=== PATIENT | male | born 1950 | race Caucasian/White ===

== ENCOUNTER → 2018-01-07 | Outpatient (CLI) | payer BC ==
[~2018-01-07] MED LIST: AMLO2.5T2 PO; ASPEC325 PO; ASPI325T45 PO; CLB200 PO; ENAL20TA PO; HYDR-5688 PO; LPT/40 PO; METF500T PO; OXYSR10 PO; RANI150C4 PO
[2018-01-07 13:31] LABS: HEMOGLOBIN A1C 6.7 % (4.5-5.6)
[2018-01-07 14:51] LABS: ALBUMIN 3.9 gm/dl (3.4-5.0); BLOOD UREA NITROGEN 20 mg/dl (7-18); CALCIUM 9.2 mg/dl (8.5-10.1); CARBON DIOXIDE 23 mmol/L (21-32); GLUCOSE 138 mg/dl (70-99); POTASSIUM 4.1 mmol/L (3.5-5.1); SODIUM 144 mmol/L (136-145)
[2018-01-07 14:52] LABS: PHOSPHORUS 2.5 mg/dl (2.5-4.9)
== END | disposition home or self-care (01) ==
LOC: C.LABMFLN 09:32
PROVIDERS: ATTEND Family Medicine
DX: E11.9 Type 2 diabetes mellitus without complications (principal)

== ENCOUNTER 2024-07-14 16:21 | Inpatient (IN) ==
--- NOTE | 2024-07-14 16:25 | ED Triage Note ---
Date of Service July 14, 2024 Provider in Triage Author: Nidia Woods History of Present Illness This patient was briefly evaluated while in triage. An abbreviated physical exam was performed. This patient is a 73-year-old Male who presents to the ED for evaluation retaining fluid in legs up to groin worsened over the weekend SOB with exertion seen by cardiology today, and sent for admission for diuresis just had an iron infusion recent open heart surgery this spring Physical Exam GENERAL: NAD CARDIOVASCULAR: RRR RESPIRATORY: BS diminished. ABDOMEN: BS x 4. Nontender to palpation. EXT: 3+ pitting edema BLE Initial orders for labs and / or imaging were placed and patient was placed in the waiting area until a bed is available. Please see further documentation for the full ED course.
[2024-07-14 17:06] LABS: Basophils # (auto) 0.02 K/uL (0.00-0.20); Basophils % (auto) 0.3 %; Eosinophils # (auto) 0.01 K/uL (0.00-0.50); Eosinophils % (auto) 0.1 %; Hematocrit (blood only) 31.9 % (42.0-52.0); Hemoglobin 9.4 g/dl (14.0-18.0); Immature Granulocytes # (auto) 0.02 K/uL (0.01-0.20); Immature Granulocytes % (auto) 0.3 %; Lymphocytes # (auto) 1.24 K/uL (1.20-3.40); Lymphocytes % (auto) 18.5 %; Mean Corpuscular Hemoglobin 22.5 pg (25.0-34.0); Mean Corpuscular Hgb Conc 29.5 g/dL (32.0-36.0); Mean Corpuscular Volume 76.3 fL (80.0-100.0); Mean Platelet Volume 9.8 fL (9.4-12.4); Monocytes # (auto) 0.37 K/uL (0.11-0.59); Monocytes % (auto) 5.5 %; Neutrophils # (auto) 5.06 K/uL (1.40-6.50); Neutrophils % (auto) 75.3 %; Platelet Count 179 K/uL (130-400); RDW Coefficient of Variation 19.3 % (11.5-14.5); RDW Standard Deviation 51.4 fL (36.4-46.3); Red Blood Count 4.18 M/uL (4.70-6.10); White Blood Count 6.72 K/ul (4.8-10.8)
[2024-07-14 17:15] LABS: Appearance Urine Cloudy (Clear); Bacteria Urine Automated None Seen (None Seen); Bilirubin Urine Negative (Negative); Blood Urine Trace (Negative); Color Urine Yellow; Epithelial Cell Urine Auto 0-2 /hpf (0-2); Glucose Urine UA Negative (Negative); Ketones Urine Negative (Negative); Leukocyte Esterase Urine 3+ (Negative); Nitrite Urine Negative (Negative); Protein Urine 1+ (Negative); Specific Gravity Urine 1.014 (1.000-1.030); Urobilinogen Urine Negative (Negative); WBC Urine Automated >50 /hpf (0-5)
[2024-07-14 17:21] LABS: Albumin Globulin Ratio 1.4 (0.9-2); Albumin Level 4.1 gm/dl (3.4-5.0); BUN Creatinine Ratio 12.1 (10-20); Bilirubin,Total 0.5 mg/dl (0.2-1.0); Calcium 9.5 mg/dl (8.6-10.3); Creatinine Clr Calc Pharmacy 30.6 ml/min; Est GFR (African American) 24.5 ml/min; Est GFR (Non-African American) 21.2 ml/min; Globulin 2.9 gm/dl (2.5-4.0); Potassium 4.1 mmol/L (3.5-5.1)
--- NOTE | 2024-07-14 17:24 | XRay Report ---
XR chest 2V PA/lateral CLINICAL HISTORY: SOB, fluid retention TECHNIQUE: 2 views of the chest were obtained. Comparison: Comparison is made to chest radiograph 10/15/2014 FINDINGS: Median sternotomy wires are unchanged. Aortic appendage clip is seen. Cardiomegaly is noted. Prominen ce and cephalization of the vasculature is seen. Trace left pleural effusion is seen. IMPRESSION: 1. Cardiomegaly and mild pulmonary edema. 2. Trace left pleural effusion. ACT 112: Negative or not required by law. Electronically signed by: Joey Cheema M.D. 07/14/2024 5:22 PM
[2024-07-14 17:37] LABS: INR 3.5 (0.9-1.1); Partial Thromboplastin Ratio 1.5; Partial Thromboplastin Time 41 Seconds (21-31); Prothrombin Time 33.8 Seconds (9.0-12.0)
[2024-07-14 17:38] LABS: Troponin I High Sensitivity 173.5 pg/ml (0-20)
--- NOTE | 2024-07-14 18:45 | Emergency Department Note ---
History of Present Illness General Chief Complaint: Swelling/Edema to Extremity Stated Complaint: EDMEA/LEGS/GROIN Time Seen by Provider: 07/14/24 16:58 History of Present Illness Provider Complaint: shortness of breath Onset (ago): day(s) (4) Severity: similar to previous episodes Consistency/Duration: + progressively worsening Relieved By: + rest Exacerbated By: + exertion Known history of: congestive heart failure Associated symptoms: + orthopnea and + chest congestion; no pain with inspiration, no fever, no cough, no wheezing or no sputum production Treatment prior to arrival: none Related Data Home oxygen amount: none Home Medications Medication Instructions Recorded Confirmed Type lancets 30 gauge (OneTouch #100 ea 01/29/24 07/14/24 Rx UltraSoft 2 Lancet) blood-glucose meter (OneTouch #1 ea 02/06/24 07/14/24 Rx Ultra2 Meter) warfarin 5 mg tablet 5 mg PO DAILY #90 tabs 03/23/24 07/14/24 Rx clopidogrel 75 mg tablet 75 mg PO QAM 04/27/24 07/14/24 History tamsulosin 0.4 mg capsule 0.4 mg PO PM 04/27/24 07/14/24 History folic acid 1 mg tablet 1 mg PO HS #90 tabs 05/05/24 07/14/24 Rx atorvastatin 40 mg tablet 40 mg PO QAM #90 tabs 05/19/24 07/14/24 Rx amiodarone 200 mg tablet 200 mg PO DAILY #30 tabs 06/02/24 07/14/24 Rx blood sugar diagnostic (OneTouch #100 ea 06/12/24 07/14/24 Rx Ultra Test strips) torsemide 20 mg tablet 20 mg PO DAILY #60 tabs 07/02/24 07/14/24 Rx cyanocobalamin (vitamin B-12) 1,000 mcg sublingual DAILY 07/14/24 07/14/24 History 1,000 mcg sublingual tablet glimepiride 1 mg tablet 1 mg PO QPM 07/14/24 07/14/24 History Allergies Allergy/AdvReac Type Severity Reaction Status Date / Time No Known Drug Allergies Allergy Unknown Verified 07/14/24 17:42 Past Med/Surg History Problem List (Updated 07/14/24 @ 18:51 by Keanu Mosher MD) Benign essential hypertension (Chronic) Diabetes mellitus (Chronic) Hyperlipidemia (Chronic) CAD (coronary artery disease) Heart failure with preserved ejection fraction Congestive heart failure (CHF) (Acute) Atrial flutter Atrial fibrillation, permanent Anticoagulant long-term use Valvular heart disease Anemia due to chronic kidney disease CKD stage 4 due to type 2 diabetes mellitus Proteinuria (Chronic) Vitamin D deficiency Nephrolithiasis Pancreatic cyst (Chronic) CT Pancreas w/ and w/o IV contrast (08/01/22) 1. Stable cystic lesion in the pancreatic tail, likely a pseudocyst or side branch IPMN. Recommend continued follow-up in 1 year. 2. Similar 1.1 cm right upper pole solid renal mass. Continued attention should be given to this mass on subsequent follow-up exams. CT A/P w/o IV contrast (07/05/23) "Cystic lesion within the pancreatic tail measuring 2.4 cm, unchanged from 2019" Obesity (Chronic) Gastroesophageal reflux (Chronic) Generalized osteoarthritis of multiple sites (Chronic) Anxiety (Chronic) Allergic rhinitis (Chronic) Adenomatous colon polyp (Chronic) DJD (degenerative joint disease) (Chronic 11/10/14) Medical History Anxiety Hx of gastroesophageal reflux (GERD) now controlled Nephrolithiasis present Hypertension Diabetes mellitus, type 2 Hyperlipidemia Valvular heart disease CKD stage 4 due to type 2 diabetes mellitus follows with Dr. Martínez Atrial fibrillation dx 2021 > no pacer > Warfarin > follows with Dr. Vasquez Renal mass CT A/P (07/05/23) "There is a cortical renal cyst formation on the right with some wall calcification" Benign paroxysmal positional vertigo H/O TIA (transient ischemic attack) and stroke pt unaware/ denies Multiple pulmonary nodules CT Chest (01/24/23) "Compared to a prior CT chest dated 01/02/2019, lung stable benign nodules measuring between 2 mm and 10 mm in size. No follow-up imaging is recommended." Surgical History History of cardiac cath 12/2023 > no stents History of cystoscopy Hx of heart bypass surgery triple at [facility] 01/07/24 H/O umbilical hernia repair Status post hip replacement right H/O knee surgery bilat H/O colonoscopy 01/16/23 repeat 5 yrs Family History Father Coronary heart disease Myocardial infarction Brother Coronary heart disease Myocardial infarction Denies family history of Prostate cancer Breast cancer Colorectal cancer Social History Smoking Status: Never smoker Second Hand Exposure: No; Do You Dip or Chew Tobacco: No; Hx Alcohol Use: Yes Hx Substance Use: No Preferred Language: Slovenian Communication Ability: Effective Metal Stamper Required: No Beliefs That Will Affect Care: None marital status: / Current Living Situation: Alone Feels Safe at Home: Yes Assistive Devices: Glasses and Hearing Aid - Bilateral Physical Exam 2 Vital Signs: Vital Signs - 24 hr 07/14/24 16:24 07/14/24 17:06 07/14/24 17:15 Temperature 36.9 C Temperature Source Temporal Artery Sc an Pulse Rate 72 59 L Pulse Rate [Apical ] Pulse Rate from Sp O2 Sensor 61 Respiratory Rate 18 20 Respiratory Effort / Characteristics Non-Labored Sponta neous Respiratory Depth Normal Respiratory Patter n Regular Blood Pressure 139/70 147/78 H Blood Pressure [Le ft Arm] Blood Pressure Shari n 93 114 Blood Pressure Shari n [Left Arm] Pulse Oximetry 94 93 Oxygen Delivery Me thod Room Air Room Air Sepsis Recent Feve r Within 48 Hours No Sepsis New/Unexpla ined Change in Men estrada Status N/A Sepsis Action Take n by Nursing No Action Required 07/14/24 17:20 07/14/24 17:20 07/14/24 17:20 Temperature Temperature Source Pulse Rate 69 Pulse Rate [Apical ] 63 Pulse Rate from Sp O2 Sensor Respiratory Rate 18 Respiratory Effort / Characteristics Respiratory Depth Respiratory Patter n Blood Pressure Blood Pressure [Le ft Arm] 147/78 H Blood Pressure Shari n Blood Pressure Shari n [Left Arm] 101 Pulse Oximetry 97 Oxygen Delivery Me thod Room Air Sepsis Recent Feve r Within 48 Hours Sepsis New/Unexpla ined Change in Men estrada Status Sepsis Action Take n by Nursing 07/14/24 17:30 07/14/24 17:57 07/14/24 18:02 Temperature Temperature Source Pulse Rate 63 68 Pulse Rate [Apical ] Pulse Rate from Sp O2 Sensor 61 68 Respiratory Rate 24 26 H Respiratory Effort / Characteristics Respiratory Depth Respiratory Patter n Blood Pressure 143/78 H Blood Pressure [Le ft Arm] Blood Pressure Shari n 95 Blood Pressure Shari n [Left Arm] Pulse Oximetry 95 96 Oxygen Delivery Me thod Room Air Room Air Sepsis Recent Feve r Within 48 Hours Sepsis New/Unexpla ined Change in Men estrada Status Sepsis Action Take n by Nursing 07/14/24 18:03 Temperature Temperature Source Pulse Rate 66 Pulse Rate [Apical ] Pulse Rate from Sp O2 Sensor 66 Respiratory Rate 24 Respiratory Effort / Characteristics Respiratory Depth Respiratory Patter n Blood Pressure Blood Pressure [Le ft Arm] Blood Pressure Shari n Blood Pressure Shari n [Left Arm] Pulse Oximetry 94 Oxygen Delivery Me thod Room Air Sepsis Recent Feve r Within 48 Hours Sepsis New/Unexpla ined Change in Men estrada Status Sepsis Action Take n by Nursing Physical Exam: Physical Exam GENERAL: oriented to person, place, and time. appears well-developed and well- nourished. HENT: Exam performed. - Head: Normocephalic and atraumatic. EYES: Conjunctivae and EOM are normal. Right eye exhibits no discharge. Left eye exhibits no discharge. No scleral icterus. NECK: Normal range of motion. Neck supple. No JVD present. CV: Normal rate, regular rhythm, normal heart sounds and intact distal pulses. There is 2+ pitting edema in the bilateral lower extremities. Palpable radial pulses bue. PULM/CHEST: Inspiratory rales bilaterally. ABD: The abdomen is soft. There is no tenderness. NEURO: Motor and sensation grossly intact. SKIN: Skin is warm and dry. He is not diaphoretic. PSYCH: normal mood and affect. Behavior is normal. Judgment and thought content normal. Course Course 165: The patient was evaluated in room A4. A complete history and physical exam was performed Cardiac monitoring: An order was placed for continuous cardiac monitoring. The monitor shows a rate of 70 with sinus rhythm interpreted by me 1755: Vital signs stable. Labs show hemoglobin of 9.4. INR 3.4. Creatinine 2.81 at patient's baseline. High-sensitivity troponin 173.5. proBNP 640. Chest x-ray shows cardiomegaly with pulmonary edema. Patient be admitted to the [facility] hospitalist team. Discussed with Dr. Ramon who states he will put in orders for diuresis. Medical Decision Making Medical Records Attestation: I reviewed the patient's medical records. External medical records reviewed. Patient was seen by Michelle Neff in the cardiology clinic today. The patient appeared hypervolemic there and in the past his kidney function has worsened with aggressive diuresis. Cardiology recommended the patient be admitted for IV diuretic therapy and so his renal function can be closely monitored. Laboratory Data Attestation: I reviewed the patient's lab results. 07/14/24 16:36 07/14/24 16:36 Lab Results 07/14/24 07/14/24 Range/Units 16:36 16:42 WBC 6.72 (4.8-10.8) K/ul RBC 4.18 L (4.70-6.10) M/uL Hgb 9.4 L (14.0-18.0) g/dl Hct 31.9 L (42.0-52.0) % MCV 76.3 L (80.0-100.0) fL MCH 22.5 L (25.0-34.0) pg MCHC 29.5 L (32.0-36.0) g/dL RDW Std Deviation 51.4 H (36.4-46.3) fL RDW Coeff of [place] 19.3 H (11.5-14.5) % Plt Count 179 (130-400) K/uL MPV 9.8 (9.4-12.4) fL Immature Gran % (Auto) 0.3 % Neut % (Auto) 75.3 % Lymph % (Auto) 18.5 % Reeves % (Auto) 5.5 % Eos % (Auto) 0.1 % Baso % (Auto) 0.3 % Neut # (Auto) 5.06 (1.40-6.50) K/uL Lymph # (Auto) 1.24 (1.20-3.40) K/uL Reeves # (Auto) 0.37 (0.11-0.59) K/uL Eos # (Auto) 0.01 (0.00-0.50) K/uL Baso # (Auto) 0.02 (0.00-0.20) K/uL Immature Gran # (Auto) 0.02 (0.01-0.20) K/uL PT 33.8 H (9.0-12.0) Seconds INR 3.5 H (0.9-1.1) APTT 41 H (21-31) Seconds PTT Ratio 1.5 Sodium 142 (136-145) mmol/L Potassium 4.1 (3.5-5.1) mmol/L Chloride 111 H (98-107) mmol/L Carbon Dioxide 23 (21-32) mmol/L Anion Gap 8 (3-11) BUN 34 H (6-23) mg/dl Creatinine 2.81 H (0.6-1.4) mg/dl Est Cr Clr Drug Dosing 30.6 ml/min Est GFR ( Amer) 24.5 ml/min Est GFR (Non-Af Amer) 21.2 ml/min BUN/Creatinine Ratio 12.1 (10-20) Glucose 136 H (70-99(Fasting)) mg/dl Calcium 9.5 (8.6-10.3) mg/dl Total Bilirubin 0.5 (0.2-1.0) mg/dl AST 15 (13-39) U/L ALT 19 (7-52) U/L Alkaline Phosphatase 92 (34-104) U/L Troponin I High Sens 173.5 H* (0-20) pg/ml B-Natriuretic Peptide 640 H (0-100) pg/ml Total Protein 7.0 (6.0-8.3) gm/dl Albumin 4.1 (3.4-5.0) gm/dl Globulin 2.9 (2.5-4.0) gm/dl Albumin/Globulin Ratio 1.4 (0.9-2) Urine Color Yellow Urine Appearance Cloudy A (Clear) Urine pH 5.0 (4.5-7.5) Ur Specific [place] 1.014 (1.000-1.030) Urine Protein 1+ H (Negative) Urine Glucose (UA) Negative (Negative) Urine Ketones Negative (Negative) Urine Blood Trace H (Negative) Urine Nitrite Negative (Negative) Urine Bilirubin Negative (Negative) Urine Urobilinogen Negative (Negative) Ur Leukocyte Esterase 3+ H (Negative) Urine WBC (Auto) >50 H (0-5) /hpf Urine RBC (Auto) 3-5 H (0-2) /hpf U Hyaline Cast (Auto) 3-5 H (0-2) /lpf U Epithel Cells (Auto) 0-2 (0-2) /hpf Urine Bacteria (Auto) None Seen (None Seen) Imaging Data Attestation: I personally reviewed and interpreted this imaging study as follows: My Impression: Chest x-ray: Cardiomegaly with cephalization Radiologist's Impression: Chest X-Ray 07/14/24 16:25 XR chest 2V PA/lateral CLINICAL HISTORY: SOB, fluid retention TECHNIQUE: 2 views of the chest were obtained. Comparison: Comparison is made to chest radiograph 10/15/2014 FINDINGS: Median sternotomy wires are unchanged. Aortic appendage clip is seen. Cardiomegaly is noted. Prominence and cephalization of the vasculature is seen. Trace left pleural effusion is seen. IMPRESSION: 1. Cardiomegaly and mild pulmonary edema. 2. Trace left pleural effusion. ACT 112: Negative or not required by law. Electronically signed by: Joey Cheema M.D. 07/14/2024 5:22 PM ECG Data Attestation: I personally reviewed and interpreted this ECG as follows: Interpretation: Sinus rhythm with sinus arrhythmia with rate of 67. VA 208 QRS [address] elevation or ST depression. [facility] Narrative 1658: The patient was evaluated in room A4. A complete history and physical exam was performed Cardiac monitoring: An order was placed for continuous cardiac monitoring. The monitor shows a rate of 70 with sinus rhythm interpreted by me 1755: Vital signs stable. Labs show hemoglobin of 9.4. INR 3.4. Creatinine 2.81 at patient's baseline. High-sensitivity troponin 173.5. proBNP 640. Chest x-ray shows cardiomegaly with pulmonary edema. Patient be admitted to the [facility] hospitalist team. Discussed with Dr. Ramon who states he will put in orders for diuresis. Impression & Plan Congestive heart failure (CHF) Discharge Plan Visit Data Chief Complaint: Swelling/Edema to Extremity Stated Complaint: EDMEA/LEGS/GROIN ED Provider: Keanu Mosher Discharge Problem: Congestive heart failure (CHF) Patient Disposition: Admitted As Inpatient Forms Stand Alone Forms: My [facility] Prescriptions Prescriptions: No Action (DME) lancets [OneTouch UltraSoft 2 Lancet] 30 gauge misc See Rx Instructions .ROUTE .MEDSUPPLY Qty: 100 1RF Rx Instructions: As directed once daily dx:e11.9 (DME) blood-glucose meter [OneTouch Ultra2 Meter] Misc See Rx Instructions .Route Qty: 1 0RF Rx Instructions: As directed. Check glucose once daily. DX E11.9 warfarin 5 mg tablet 5 mg PO DAILY Qty: 90 3RF Protocol: Dose Management Condition: Saturday Dose/Route: 5 mg Instruction: 1 x 5 mg tablet Condition: Saturday Dose/Route: 2.5 mg Instruction: 1 x 2.5 mg tablet Condition: Saturday Dose/Route: 2.5 mg Instruction: 1 x 2.5 mg tablet Condition: Saturday Dose/Route: 2.5 mg Instruction: 1 x 2.5 mg tablet Condition: Dose/Route: 2.5 mg Instruction: 1 x 2.5 mg tablet Condition: Saturday Dose/Route: 2.5 mg Instruction: 1 x 2.5 mg tablet Condition: Saturday Dose/Route: 5 mg Instruction: 1 x 5 mg tablet Protocol Text: Adjustment Start Date: Saturday06/30/24 INR Value: 2.5 INR Date: 06/30/24 Recheck Date: 07/14/24 Rx Instructions: Take 5mg by mouth on Sat/Sun. Take 2.5mg all other days. atorvastatin 40 mg tablet 40 mg PO QAM Qty: 90 3RF (DME) OneTouch Ultra Test Strip See Rx Instructions .ROUTE .MEDSUPPLY Qty: 100 0RF Rx Instructions: Check sugar once daily as directed DX:E11.9 torsemide 20 mg tablet 20 mg PO DAILY Qty: 60 11RF folic acid 1 mg tablet 1 mg PO HS Qty: 90 3RF amiodarone 200 mg tablet 200 mg PO DAILY Qty: 30 2RF clopidogrel 75 mg tablet 75 mg PO QAM tamsulosin 0.4 mg capsule 0.4 mg PO PM cyanocobalamin (vitamin B-12) [Vitamin B-12] 1,000 mcg Tablet, Sublingual 1,000 mcg SUBLINGUAL DAILY glimepiride 1 mg tablet 1 mg PO QPM Referrals Referrals: Radha Bhatt CRNP [Primary Care Provider] -
--- NOTE | 2024-07-14 19:02 | History & Physical Report ---
Date of Service July 14, 2024 Assessment & Plan (1) Acute on chronic heart failure with preserved ejection fraction: Plan: 1 wk hx of worsening SoB and leg swelling. TTE 04/2024 LVEF 55-60% Pt on torsemide 20mg od, compliant with medications. no obvious triggers identified in hx. JVD elev, HJR+, B/L pedal edema 2+, CXR today cardiomegaly, lungs congestion, LL small pleural effusion. today BNP 640 (455). Trop 173.5 likely demand ischemia. IV furosemide 40mg stat then 40mg IV BID Tele monitoring I/O Daily weights AM labs (2) Paroxysmal atrial fibrillation: Plan: known hx of AFib. pt on anticoagulation with warfarin ( 5mg sat/sun and rest of the week 2.5mg, target 2-3INR) denies any palpitations SoB, or chest pains. EKG current in NSR with sinus arrhythmia Plan: Tele repeat EKG AM labs today INR 3.5, so dose skipped. to continue warfarin 2.5mg (usual recommended dose) c/w Amiodarone 200mg daily (3) CAD (coronary artery disease): Plan: s/p CABG 01/25 no chest pain. Plan: c/w Plavix 75mg daily C/w Atorvastatin 40mg daily (4) Diabetes mellitus: Plan: known hx of DM2 on oral meds last A1c 05/27, 6.5, today Glu 135. Plan: c/w home meds, glimepiride 1mg daily repeat A1c Bl Glu monitoring. (5) CKD stage 4 due to type 2 diabetes mellitus: Plan: Known hx of CKD 3a eGFR 21.2 today. Plan: renal dosing of medications monitor renal labs I/O daily weights. (6) Anemia due to chronic kidney disease: Plan: known CKD. AOCD pt had iron transfusion this afternoon. Hb 9.4, Hct 31.9, Plan: monitor CBC (7) Hyperlipidemia: Plan: known hx of CAD, DM2 Plan: c/w Atorvastatin 40mg (8) Elevated troponin: Plan: Trops elevated on admission pt denies any chest pain or discomfort. pt hx of CKD3a Trops 173.5 > [address] no [address]/T changes today when compared to previous EKGs. Plan: Repeat Trops am Repeat EKG am AM labs Tele. History of Present Illness Chief Complaint: leg swelling Primary Care Provider: SAM Mota This is a 73-year-old Male with b/g hx of HFpEF, CABG (01/25), CKD 3a, HTN, DM2, AFib permanent (on warfarin), CAD who presents to the ED for evaluation retaining fluid in legs up to groin and SOB with exertion that is worsened over the weekend. Pt was seen by cardiology today as a routine visit, and sent for admission for diuresis. Pt denies any chest pain or palpitations or syncope. No recent cough, diarrhea, dysuria or any acute illnesses. Pt says that he is compliant with his medications. He still uses 2 pillows to sleep, no change. Allergies Allergy/AdvReac Type Severity Reaction Status Date / Time No Known Drug Allergies Allergy Unknown Verified 07/14/24 17:42 Home Medications Medication Instructions Recorded Confirmed Type lancets 30 gauge (OneTouch #100 ea 01/29/24 07/14/24 Rx UltraSoft 2 Lancet) blood-glucose meter (OneTouch #1 ea 02/06/24 07/14/24 Rx Ultra2 Meter) warfarin 5 mg tablet 5 mg PO DAILY #90 tabs 03/23/24 07/14/24 Rx clopidogrel 75 mg tablet 75 mg PO QAM 04/27/24 07/14/24 History tamsulosin 0.4 mg capsule 0.4 mg PO PM 04/27/24 07/14/24 History folic acid 1 mg tablet 1 mg PO HS #90 tabs 05/05/24 07/14/24 Rx atorvastatin 40 mg tablet 40 mg PO QAM #90 tabs 05/19/24 07/14/24 Rx amiodarone 200 mg tablet 200 mg PO DAILY #30 tabs 06/02/24 07/14/24 Rx blood sugar diagnostic (OneTouch #100 ea 06/12/24 07/14/24 Rx Ultra Test strips) torsemide 20 mg tablet 20 mg PO DAILY #60 tabs 07/02/24 07/14/24 Rx cyanocobalamin (vitamin B-12) 1,000 mcg sublingual DAILY 07/14/24 07/14/24 History 1,000 mcg sublingual tablet glimepiride 1 mg tablet 1 mg PO QPM 07/14/24 07/14/24 History Past Med/Surg History Problem List Paroxysmal atrial fibrillation Acute on chronic heart failure with preserved ejection fraction Acute congestive heart failure Elevated troponin Benign essential hypertension (Chronic) Diabetes mellitus (Chronic) Hyperlipidemia (Chronic) CAD (coronary artery disease) Heart failure with preserved ejection fraction Congestive heart failure (CHF) (Acute) Atrial flutter Anticoagulant long-term use Valvular heart disease Anemia due to chronic kidney disease CKD stage 4 due to type 2 diabetes mellitus Proteinuria (Chronic) Vitamin D deficiency Nephrolithiasis Pancreatic cyst (Chronic) CT Pancreas w/ and w/o IV contrast (08/01/22) 1. Stable cystic lesion in the pancreatic tail, likely a pseudocyst or side branch IPMN. Recommend continued follow-up in 1 year. 2. Similar 1.1 cm right upper pole solid renal mass. Continued attention should be given to this mass on subsequent follow-up exams. CT A/P w/o IV contrast (07/05/23) "Cystic lesion within the pancreatic tail measuring 2.4 cm, unchanged from 2019" Obesity (Chronic) Gastroesophageal reflux (Chronic) Generalized osteoarthritis of multiple sites (Chronic) Anxiety (Chronic) Allergic rhinitis (Chronic) Adenomatous colon polyp (Chronic) DJD (degenerative joint disease) (Chronic 11/10/14) Medical History Anxiety Hx of gastroesophageal reflux (GERD) now controlled Nephrolithiasis present Hypertension Diabetes mellitus, type 2 Hyperlipidemia Valvular heart disease CKD stage 4 due to type 2 diabetes mellitus follows with Dr. Martínez Atrial fibrillation dx 2021 > no pacer > Warfarin > follows with Dr. Vasquez Renal mass CT A/P (07/05/23) "There is a cortical renal cyst formation on the right with some wall calcification" Benign paroxysmal positional vertigo H/O TIA (transient ischemic attack) and stroke pt unaware/ denies Multiple pulmonary nodules CT Chest (01/24/23) "Compared to a prior CT chest dated 01/02/2019, lung stable benign nodules measuring between 2 mm and 10 mm in size. No follow-up imaging is r ecommended." Surgical History History of cardiac cath 12/2023 > no stents History of cystoscopy Hx of heart bypass surgery triple at [place] 01/07/24 H/O umbilical hernia repair Status post hip replacement right H/O knee surgery bilat H/O colonoscopy 01/16/23 repeat 5 yrs Family History Father Coronary heart disease Myocardial infarction Brother Coronary heart disease Myocardial infarction Denies family history of Prostate cancer Breast cancer Colorectal cancer Social History Smoking Status: Never smoker Second Hand Exposure: No; Do You Dip or Chew Tobacco: No; Hx Alcohol Use: No Hx Substance Use: No Preferred Language: Turkish Communication Ability: Effective Host Hostess Required: No Beliefs That Will Affect Care: None marital status: / Current Living Situation: Alone Other Information That Helps Us Care for You: No Feels Safe at Home: Yes Safety Concerns: Feels Safe At This Time Assistive Devices: None Assistive Devices Comment: reading glasses Review of Systems Review of Systems: as per HPI Physical Exam Physical Exam: General: Alert and oriented, no acute distress, on room air. HEENT: Normocephalic, moist oral mucosa, Cardio: irregular rate and rhythm, no murmur, JVD mild elevation, HJR +, B/L pedal edema 2+. Resp: Lungs crepts++ to auscultation b/l, reduced br sounds at Lt LL, no wheezes. GI: Soft and nontender, nondistended, bowel sounds active Skin: Warm, pink, dry, Psych: Mood-affect congruence. Extremities: Normal range of motion, 5/5 strength, normal sensory b/l. Neuro: CN II-XII grossly intact, no focal deficits Results & Data Results & Data Vital Signs (Past 12 Hours) Vital Signs Temp Pulse Pulse Resp BP BP Pulse Ox 07/14/24 18:03 66 24 94 07/14/24 18:02 143/78 H 07/14/24 17:57 68 26 H 96 07/14/24 17:30 63 24 95 07/14/24 17:20 07/14/24 17:20 63 18 147/78 H 97 07/14/24 17:20 69 07/14/24 17:15 59 L 20 93 07/14/24 17:06 147/78 H 09/10/24 16:24 36.9 C 72 18 139/70 94 O2 Del Method 07/14/24 18:03 Room Air 07/14/24 18:02 07/14/24 17:57 Room Air 07/14/24 17:30 Room Air 07/14/24 17:20 Room Air 07/14/24 17:20 07/14/24 17:20 07/14/24 17:15 Room Air 07/14/24 17:06 07/14/24 16:24 Room Air Supervising Physician Co-Signing Physician Notes I personally saw and examined the patient. I independently reviewed the labs, EKG, imaging, problem list, medication list, past medical history and family history. I verified all santiago points and agree with resident physician Dr Franky Hernández MD with the following exceptions and/or additions: 73 year old male presents to the ER with shortness of breath. Diagnosed with heart failure and recommended going to the ER for diuresis given prior diuresis cause increased Cr. O/E HS irregular rhythm, regular rate, no murmurs, Chest bibasal reduced breath sounds, Abdo SNT distended, Pedal edema 2+ to groin A/P Acute on chronic HFpEF - torsemide 20mg PO outpatient. Will give 40mg IV Lasix today and continue 40mg IV BID. I&Os, daily weights, low Na diet, fluid restricted CKD - no imaging since his stone in July and much worse renal function since then as it has never recovered. <200ml on PVR bladder scan. US renal ordered. Paroxysmal atrial fibrillation - previously documented as permanent but in NSR today. Cardiology note also mentioned switching amio to metoprolol but given current NSR would recommend he continues on rhythm control since it appears to be working. Continue anticoagulation with warfarin. [facility] RN consult as expense is the issue for him switching to Eliquis Elevated troponin - No chest pain or shortness of breath at rest. Stable. Do not suspect ACS. Repeat one more with AM labs Resident Activity Tracking Resident Involvement: Resident Care Provided Care Provided: Adult Hospital Medicine (3) CAD (coronary artery disease) Associated angina: without angina Coronary Disease-Associated Artery/Lesion type: [place] artery [place] vs. 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
[2024-07-14] MEDS: FUROSEMIDE 40 MG/4 ML VIAL IV STA (19:51)
[2024-07-14] MEDS ORDERED: CARBOHYDRATES FOR HYPOGLYCEMIA PO PRN (22:14)
[2024-07-14] MEDS ORDERED: ACETAMINOPHEN 325 MG TAB PO PRN (22:14)
[2024-07-14] MEDS ORDERED: GLUCOSE 40% GEL 15 GM TUBE PO PRN (22:14)
[2024-07-14] MEDS ORDERED: POLYETHYLENE (MIRALAX) 17 GM PACK PO PRN (22:14)
[2024-07-14] MEDS ORDERED: DEXTROSE 50% 50 ML SYRINGE IV PRN (22:14)
[2024-07-14] MEDS ORDERED: GLUCOSE 10 TAB/TUBE PO PRN (22:14)
[2024-07-14] MEDS ORDERED: GLUCAGON FOR INJ 1 MG VIAL SQ PRN (22:14)
[2024-07-14] MEDS: GLIMEPIRIDE 2 MG TAB PO SCH (23:30)
[2024-07-14] MEDS: ATORVASTATIN 40 MG TAB PO SCH (23:30)
[2024-07-14] MEDS: FOLIC ACID 1 MG TAB PO SCH (23:30)
[2024-07-14] MEDS: TAMSULOSIN HCL 0.4 MG CAP PO SCH (23:30)
[2024-07-15 08:20] LABS: Estimated Average Glucose 140 mg/dl; Hemoglobin A1C 6.5 % (4.5-5.6)
--- NOTE | 2024-07-15 08:29 | Cardiology Consultation ---
Date of Consultation July 15, 2024 Assessment & Plan (1) Acute on chronic heart failure with preserved ejection fraction: (2) Elevated troponin: (3) CAD (coronary artery disease): (4) Atrial flutter: (5) Anticoagulant long-term use: (6) Hypertension: (7) CKD stage 4 due to type 2 diabetes mellitus: (8) Hx of heart bypass surgery: (9) Paroxysmal atrial fibrillation: Plan ASSESSMENT/PLAN: 1. Acute on chronic heart failure with preserved EF: Hypervolemic. Abnormal renal function, but improving with diuresis. Continue Lasix 40 mg IV twice daily for now. Goal net negative fluid balance 1 to 2 L daily. Seems to be diuresing reasonably well thus far and he admits that there was a large amount of urine that was not collected in the ER and thus not included in his current fluid balance. Close monitoring of renal function and electrolytes recommended. Will add on TSH. Discussed the importance of a low-sodium diet, less than 2000 mg daily. Check daily weights and strict I's and O's while hospitalized. Was unable to afford SGLT2 inhibitor. 2. CAD s/p CABG x 3: No angina since CABG. Angina consisted of burning in his throat with exertion accompanied by dyspnea. Continue high intensity statin therapy. CT surgery recommended Plavix. Can continue up to 1 year s/p CABG but would discontinue for adverse reaction, while also on warfarin. If any evidence of bleeding, would discontinue Plavix. Had significant bradycardia on metoprolol while on amiodarone. 3. Atrial flutter s/p DC CV: Noted following CABG and maze procedure but previously had been in permanent atrial fibrillation. Currently in sinus rhythm while on amiodarone. Continue amiodarone. Continue anticoagulation for stroke risk reduction. Not on DOAC agent secondary to finances. INR managed by PCP. Monitor CBC periodically. Monitor TSH and transaminase levels while on amiodarone. 4. Atrial fibrillation: [place] to be permanent but following Maze procedure developed atrial flutter. Underwent left atrial appendage closure at the time of CABG but unless documented no flow, would continue anticoagulation therapy for stroke risk reduction. Now in sinus rhythm on amiodarone. 5. Hypertension: Normotensive to mildly hypertensive while here. Most recent blood pressure well-controlled. Continue plan as above. 6. CKD: Has been evaluated by nephrology in the outpatient setting. Renal ultrasound interpretation pending. Monitor renal function closely. 7. Anemia: Is receiving outpatient IV iron. Monitor for bleeding. 8. Elevated troponin: He did not present with acute coronary syndrome. Likely due to demand ischemia in the setting of CHF exacerbation. Repeat echo to ensure stable LV systolic function and wall motion. 9. Disposition: I will be away from the hospital the remainder of the week. Cardiology will continue to follow. Please call on-call topographic computator for questions or concerns. Patient care discussed with Dr. Skinner of the primary hospitalist service. Highly complex medical issues. Thank you for allowing me to participate in the care of your patient. Please call for any other questions or concerns. Sincerely, Usman Vasquez M.D. History of Present Illness Reason for Consultation: Heart failure Requesting Physician: Merna Skinner MD Attending Physician: Merna Skinner MD History of Present Illness Mr. Hartman is a pleasant 73-year-old gentleman with a history significant for CAD s/p CABG x 3, HFpEF, atrial flutter (after CABG and MAZE) s/p CV, atrial fibrillation, hypertension, dyslipidemia, CKD, and type 2 diabetes. He has had the following studies/procedures: 1. Holter 01/11/2021 [facility]: AFib with average heart rate 85 beats per minute, ranging 34-132. No symptoms reported. 2. Echo 01/13/2021: Normal LV size, wall motion, systolic function. EF 55-60%. Severe concentric LVH. Moderate left atrial dilation. No significant valvular abnormalities. RVSP 33. AFib with RVR. 3. Nuclear stress 12/05/23 [facility]: Moderate area of moderate intensity partially reversible perfusion defect of the apex, distal to basal inferoseptal, and inferior wall. Gated imaging shows hypokinesis of the apex and distal inferoseptal and inferior wall. LV EF 53%. 4. Echo 12/18/23 [facility]: Normal LV size and systolic function. EF 60-65%. Small area of severe hypokinesis involving the apex. Severe concentric LVH. Severe left atrial dilation. Mild MR. Trace AI. Mild pulmonary hypertension. RVSP 47 mmHg. 5. Cardiac catheterization 12/18/23 [facility]: LM 10 to 20%. Mid LAD 99% at bifurcation of small D2. ANU II flow to the apical LAD. Large OM1 with proximal 70 to 80% stenosis and ANU-3 flow. Robust collaterals from the circumflex distribution to RCA PDA and PL. RCA is large and dominant. Early mid RCA 70%. Mid RCA 100% at bifurcation of acute marginal. PDA and PL fill via left to right collaterals. LVEDP 16. 6. CABG x3 (FENG-LAD, SVG-RCA, SVG-OM2), biatrial ablation, and occlusion of left atrial appendage using 45 mm AtriClip on 01/07/[address] Guzman at [facility] 7. Holter 03/10/2024 to 03/24/2024: Predominantly atrial flutter/fibrillation. Average heart rate 97 (78-226). PVCs. Nonsustained VT up to 16 beats. 8. Echo 04/10/2024 [facility]: Normal LV size, wall motion, systolic function. EF 55- 60%. Severe concentric LVH. Normal RV size with mildly reduced systolic function. Severe left atrial dilation. Mild AI. Mild MR. RVSP 45. Tachycardic heart rate consistently ~110 bpm. 9. DC cardioversion 05/12/2024 Dr. Santo: Done for atrial flutter. Converted to sinus rhythm with 30 J. Complicated by significant bradycardia while on metoprolol and amiodarone. Metoprolol discontinued by Dr. Santo following cardioversion. He was admitted on 07/14/2024 after being seen in the outpatient cardiology office earlier that day. He had experienced a 9 pound weight gain and increased lower extremity edema but also edema/fullness in his lower abdomen. He denied any significant shortness of breath. He sleeps with his head elevated chronically, but denied orthopnea. He denies chest pain, syncope, near syncope, palpitations, melena, hematochezia, or hematuria. He tries to maintain a low-sodium diet. He admits that sometimes he eats canned foods. He had been taking torsemide 20 mg daily in the outpatient setting. He has been unable to afford SGLT2 inhibitor. Given that his renal function has been impaired and difficulty managing hypervolemia in the outpatient setting, hospitalization was recommended. While here, he received Lasix 40 mg IV in the ER. The charted fluid balance is -550 mL but he admits that he urinated multiple times prior to the collection of urine in the ER. He has had several weights charted while here in less than 24 hours and they are not consistent. Today, he states that is too early to know if he feels much better. He does however note that his abdominal fullness has improved. Review of systems: As above. Family history: Father from [place] at 44. Brother from [place] at 55. Two older sisters with AFib. Social history: Denies smoking. Rare alcohol. He has been twice. He is a . He has 1 daughter with his first but they do not speak. He has a son and daughter with his second . He lives alone. No grandchildren. He is retired from [email or web address]. He was unaccompanied. Allergies Allergy/AdvReac Type Severity Reaction Status Date / Time No Known Drug Allergies Allergy Unknown Verified 07/14/24 17:42 Home Medications Medication Instructions Recorded Confirmed Type lancets 30 gauge (OneTouch #100 ea 01/29/24 07/14/24 Rx UltraSoft 2 Lancet) blood-glucose meter (OneTouch #1 ea 02/06/24 07/14/24 Rx Ultra2 Meter) warfarin 5 mg tablet 5 mg PO DAILY #90 tabs 03/23/24 07/14/24 Rx clopidogrel 75 mg tablet 75 mg PO QAM 04/27/24 07/14/24 History tamsulosin 0.4 mg capsule 0.4 mg PO PM 04/27/24 07/14/24 History folic acid 1 mg tablet 1 mg PO HS #90 tabs 05/05/24 07/14/24 Rx atorvastatin 40 mg tablet 40 mg PO QAM #90 tabs 05/19/24 07/14/24 Rx amiodarone 200 mg tablet 200 mg PO DAILY #30 tabs 06/02/24 07/14/24 Rx blood sugar diagnostic (OneTouch #100 ea 06/12/24 07/14/24 Rx Ultra Test strips) torsemide 20 mg tablet 20 mg PO DAILY #60 tabs 07/02/24 07/14/24 Rx cyanocobalamin (vitamin B-12) 1,000 mcg sublingual DAILY 07/14/24 07/14/24 History 1,000 mcg sublingual tablet glimepiride 1 mg tablet 1 mg PO QPM 07/14/24 07/14/24 History Problem List Paroxysmal atrial fibrillation Acute on chronic heart failure with preserved ejection fraction Acute congestive heart failure Elevated troponin Benign essential hypertension (Chronic) Diabetes mellitus (Chronic) Hyperlipidemia (Chronic) CAD (coronary artery disease) Heart failure with preserved ejection fraction Congestive heart failure (CHF) (Acute) Atrial flutter Anticoagulant long-term use Valvular heart disease Anemia due to chronic kidney disease CKD stage 4 due to type 2 diabetes mellitus Proteinuria (Chronic) Vitamin D deficiency Nephrolithiasis Pancreatic cyst (Chronic) CT Pancreas w/ and w/o IV contrast (08/01/22) 1. Stable cystic lesion in the pancreatic tail, likely a pseudocyst or side branch IPMN. Recommend continued follow-up in 1 year. 2. Similar 1.1 cm right upper pole solid renal mass. Continued attention should be given to this mass on subsequent follow-up exams. CT A/P w/o IV contrast (07/05/23) "Cystic lesion within the pancreatic tail measuring 2.4 cm, unchanged from 2019" Obesity (Chronic) Gastroesophageal reflux (Chronic) Generalized osteoarthritis of multiple sites (Chronic) Anxiety (Chronic) Allergic rhinitis (Chronic) Adenomatous colon polyp (Chronic) DJD (degenerative joint disease) (Chronic 11/10/14) Patient History Medical History Anxiety Hx of gastroesophageal reflux (GERD) now controlled Nephrolithiasis present Hypertension Diabetes mellitus, type 2 Hyperlipidemia Valvular heart disease CKD stage 4 due to type 2 diabetes mellitus follows with Dr. Martínez Atrial fibrillation dx 2021 > no pacer > Warfarin > follows with Dr. Vasquez Renal mass CT A/P (07/05/23) "There is a cortical renal cyst formation on the right with some wall calcification" Benign paroxysmal positional vertigo H/O TIA (transient ischemic attack) and stroke pt unaware/ denies Multiple pulmonary nodules CT Chest (01/24/23) "Compared to a prior CT chest dated 01/02/2019, lung stable benign nodules measuring between 2 mm and 10 mm in size. No follow-up imaging is recommended." Surgical History History of cardiac cath 12/2023 > no stents History of cystoscopy Hx of heart bypass surgery triple at [facility] 01/07/24 H/O umbilical hernia repair Status post hip replacement right H/O knee surgery bilat H/O colonoscopy 01/16/23 repeat 5 yrs Family History Father Coronary heart disease Myocardial infarction Brother Coronary heart disease Myocardial infarction Denies family history of Prostate cancer Breast cancer Colorectal cancer Social History Smoking Status: Never smoker Second Hand Exposure: No; Do You Dip or Chew Tobacco: No; Hx Alcohol Use: No Hx Substance Use: No Preferred Language: Surinamese Communication Ability: Effective Director Design Required: No Beliefs That Will Affect Care: None marital status: / Current Living Situation: Alone Other Information That Helps Us Care for You: No Feels Safe at Home: Yes Safety Concerns: Feels Safe At This Time Assistive Devices: Glasses Assistive Devices Comment: reading glasses Physical Exam Physical Exam: Gen.: No acute distress. Alert and oriented. HEENT: Anicteric sclera. Neck: Elevated JVD and hepatojugular reflux. Cardiac: No ventricular heave. Regular. Normal rate. Normal S1-S2. No murmurs, rubs, or gallops. Pulmonary: Clear to auscultation bilaterally without wheezes, rales, or rhonchi. Abdomen: Soft, nontender, nondistended, with normoactive bowel sounds. No bruits noted. Trace edema lower abdomen. Extremities: 2+ radial pulses bilaterally. 2+ posterior tibialis pulses bilaterally. 2+ bilateral lower extremity edema to the knees (s/p left SVG harvest). No cyanosis. Results & Data Vital Signs (Past 12 Hours) Vital Signs Temp Pulse Pulse Resp BP Pulse Ox O2 Del Method 07/15/24 07:33 Room Air 07/15/24 07:07 57 L 07/15/24 04:00 36.5 C 60 18 127/65 94 Room Air 07/14/24 23:02 66 07/14/24 22:19 61 07/14/24 22:02 Room Air 07/14/24 22:02 36.6 C 71 18 156/72 H 92 Room Air 07/14/24 21:29 Room Air Intake & Output 07/13/24 07/14/24 07/15/2424 06:59 06:59 06:59 06:59 Intake Total 250 / 250 Output Total 800 / 800 Balance -550 / -550 Weight 257 lb 4.471 oz Laboratory Results Laboratory Results - last 24 hr 07/14/24 07/14/24 07/14/24 16:36 16:42 19:47 WBC 6.72 RBC 4.18 L Hgb 9.4 L Hct 31.9 L MCV 76.3 L MCH 22.5 L MCHC 29.5 L RDW Std Deviation 51.4 H RDW Coeff of [place] 19.3 H Plt Count 179 MPV 9.8 Immature Gran % (Auto) 0.3 Neut % (Auto) 75.3 Lymph % (Auto) 18.5 [place] % (Auto) 5.5 Eos % (Auto) 0.1 Baso % (Auto) 0.3 Neut # (Auto) 5.06 Lymph # (Auto) 1.24 [place] # (Auto) 0.37 Eos # (Auto) 0.01 Baso # (Auto) 0.02 Immature Gran # (Auto) 0.02 PT 33.8 H INR 3.5 H APTT 41 H PTT Ratio 1.5 Sodium 142 Potassium 4.1 Chloride 111 H Carbon Dioxide 23 Anion Gap 8 BUN 34 H Creatinine 2.81 H Est Cr Clr Drug Dosing 30.6 Est GFR ( Amer) 24.5 Est GFR (Non-Af Amer) 21.2 BUN/Creatinine Ratio 12.1 Glucose 136 H POC Glucose Estimat Average Glucose Hemoglobin A1c Calcium 9.5 Magnesium Total Bilirubin 0.5 AST 15 ALT 19 Alkaline Phosphatase 92 Troponin I High Sens 173.5 H* 192.0 H* B-Natriuretic Peptide 640 H Total Protein 7.0 Albumin 4.1 Globulin 2.9 Albumin/Globulin Ratio 1.4 Urine Color Yellow Urine Appearance Cloudy A Urine pH 5.0 Ur Specific [place] 1.014 Urine Protein 1+ H Urine Glucose (UA) Negative Urine Ketones Negative Urine Blood Trace H Urine Nitrite Negative Urine Bilirubin Negative Urine Urobilinogen Negative Ur Leukocyte Esterase 3+ H Urine WBC (Auto) >50 H Urine RBC (Auto) 3-5 H U Hyaline Cast (Auto) 3-5 H U Epithel Cells (Auto) 0-2 Urine Bacteria (Auto) None Seen 07/14/24 07/14/24 07/15/24 22:35 22:39 07:44 WBC 4.93 RBC 3.93 L Hgb 8.9 L Hct 30.0 L MCV 76.3 L MCH 22.6 L MCHC 29.7 L RDW Std Deviation 52.5 H RDW Coeff of [place] 19.3 H Plt Count 162 MPV 10.0 Immature Gran % (Auto) 0.4 Neut % (Auto) 67.4 Lymph % (Auto) 22.9 [place] % (Auto) 8.1 Eos % (Auto) 0.4 Baso % (Auto) 0.8 Neut # (Auto) 3.32 Lymph # (Auto) 1.13 L [place] # (Auto) 0.40 Eos # (Auto) 0.02 Baso # (Auto) 0.04 Immature Gran # (Auto) 0.02 PT 32.2 H INR 3.3 H APTT PTT Ratio Sodium 145 Potassium 4.2 Chloride 112 H Carbon Dioxide 27 Anion Gap 6 BUN 33 H Creatinine 2.63 H Est Cr Clr Drug Dosing 33.0 Est GFR ( Amer) 26.6 Est GFR (Non-Af Amer) 22.9 BUN/Creatinine Ratio 12.5 Glucose 95 POC Glucose 127 H Estimat Average Glucose 140 Hemoglobin A1c 6.5 H Calcium 9.3 Magnesium 2.1 Total Bilirubin 0.6 AST 12 L ALT 15 Alkaline Phosphatase 82 Troponin I High Sens 190.9 H* 192.2 H* B-Natriuretic Peptide Total Protein 6.4 Albumin 3.8 Globulin 2.6 Albumin/Globulin Ratio 1.5 Urine Color Urine Appearance Urine pH Ur Specific [place] Urine Protein Urine Glucose (UA) Urine Ketones Urine Blood Urine Nitrite Urine Bilirubin Urine Urobilinogen Ur Leukocyte Esterase Urine WBC (Auto) Urine RBC (Auto) U Hyaline Cast (Auto) U Epithel Cells (Auto) Urine Bacteria (Auto) 07/15/24 08:25 WBC RBC Hgb Hct MCV MCH MCHC RDW Std Deviation RDW Coeff of [place] Plt Count MPV Immature Gran % (Auto) Neut % (Auto) Lymph % (Auto) [place] % (Auto) Eos % (Auto) Baso % (Auto) Neut # (Auto) Lymph # (Auto) [place] # (Auto) Eos # (Auto) Baso # (Auto) Immature Gran # (Auto) PT INR APTT PTT Ratio Sodium Potassium Chloride Carbon Dioxide Anion Gap BUN Creatinine Est Cr Clr Drug Dosing Est GFR ( Amer) Est GFR (Non-Af Amer) BUN/Creatinine Ratio Glucose POC Glucose 136 H Estimat Average Glucose Hemoglobin A1c Calcium Magnesium Total Bilirubin AST ALT Alkaline Phosphatase Troponin I High Sens B-Natriuretic Peptide Total Protein Albumin Globulin Albumin/Globulin Ratio Urine Color Urine Appearance Urine pH Ur Specific [place] Urine Protein Urine Glucose (UA) Urine Ketones Urine Blood Urine Nitrite Urine Bilirubin Urine Urobilinogen Ur Leukocyte Esterase Urine WBC (Auto) Urine RBC (Auto) U Hyaline Cast (Auto) U Epithel Cells (Auto) Urine Bacteria (Auto) Diagnostic Findings Telemetry personally reviewed: Sinus. No arrhythmia. Labs reviewed and notable for elevated high-sensitivity troponin, normal albumin, abnormal but improving renal function, elevated BNP, chronic anemia but trending downward, normal sodium. ECG personally reviewed: ECG 07/14/2024 at 1630: Sinus 67 bpm. Incomplete RBBB. Poor R wave progression. History and physical report reviewed. Chest x-ray 07/14/2024: Prominence and cephalization of pulmonary vasculature per radiology. Medications Administered Current Inpatient Medications Acetaminophen (Acetaminophen 325 Mg Tab) 650 mg PO Q4H PRN PRN Reason: Pain or Fever Stop: 08/13/24 22:13 Amiodarone HCl (Amiodarone 200 Mg Tab) 200 mg PO DAILY ANTONI Stop: 08/14/24 08:59 Atorvastatin Calcium (Atorvastatin 40 Mg Tab) 40 mg PO PM ANTONI Stop: 08/13/24 22:13 Last Admin: 07/14/24 23:30 Dose: 40 mg Clopidogrel Bisulfate (Clopidogrel Bisulfate 75 Mg Tab) 75 mg PO QAM ANTONI Stop: 08/14/24 08:59 Cyanocobalamin (Cyanocobalamin (B-12) 500 Mcg Tablet) 1,000 mcg PO DAILY ANTONI Stop: 08/14/24 08:59 Dextrose (Dextrose 50% 50 Ml Syringe) 25 - 50 ml IV UD PRN; Protocol PRN Reason: Hypoglycemia Protocol Stop: 08/13/24 22:13 Folic Acid (Folic Acid 1 Mg Tab) 1 mg PO HS ANTONI Stop: 08/13/24 22:13 Last Admin: 07/14/24 23:30 Dose: 1 mg Furosemide (Furosemide 40 Mg/4 Ml Vial) 40 mg IV BID17 ANTONI Stop: 08/14/24 08:59 Glimepiride (Glimepiride 2 Mg Tab) 1 mg PO QDD ANTONI Stop: 08/13/24 22:13 Last Admin: 07/14/24 23:30 Dose: 1 mg Glucagon (Glucagon For Inj 1 Mg Vial) 1 mg SQ UD PRN; Protocol PRN Reason: Hypoglycemia Protocol Stop: 08/13/24 22:13 Glucose (Glucose 40% Gel 15 Gm Tube) 15 - 30 gm PO UD PRN; Protocol PRN Reason: Hypoglycemia Protocol Stop: 08/13/24 22:13 Glucose (Glucose 10 Tab/Tube) 4 - 8 tab PO UD PRN; Protocol PRN Reason: Hypoglycemia Treatment Stop: 08/13/24 22:13 Insulin Aspart (Insulin Aspart Per Unit Charge) 0 units SC ACHS [facility] Stop: 08/14/24 07:29 Miscellaneous (Carbohydrates For Hypoglycemia ) 15 - 30 gm PO UD PRN PRN Reason: Hypoglycemia Protocol Stop: 08/13/24 22:13 Polyethylene Glycol (Polyethylene (Miralax) 17 Gm Pack) 17 gm PO DAILY PRN PRN Reason: Constipation Stop: 08/13/24 22:13 Tamsulosin HCl (Tamsulosin Hcl 0.4 Mg Cap) 0.4 mg PO PM [facility] Stop: 08/13/24 22:13 Last Admin: 07/14/24 23:30 Dose: 0.4 mg Warfarin Sodium (Warfarin Sod 5 Mg Tab) 5 mg PO [id number] [facility] Stop: 08/17/24 15:59 Warfarin Sodium (Warfarin Sod 2.5 Mg Tab) 2.5 mg PO [id number] [facility] Stop: 08/14/24 15:59 PG Care Time/CCT Total # of Minutes Spent Total Time Spent with Patient: Total time spent is greater than 50% in coordination of care (as documented) at patient's floor/unit and/or counseling patient: Coding Level of Care Code 60412 INT INP/OBS CARE 3/75MIN Diagnoses Acute on chronic heart failure with preserved ejection fraction I50.33 Elevated troponin R79.89 Coronary artery disease involving [place] coronary artery of [place] heart without angina pectoris I25.10 Associated angina: without angina Coronary Disease-Associated Artery/Lesion type: [place] artery [place] vs. transplanted heart: [place] heart Atrial flutter I48.92 Anticoagulant long-term use Z79.01 Hypertension I10 CKD stage 4 due to type 2 diabetes mellitus E11.22; N18.4 Hx of heart bypass surgery Z95.1 Paroxysmal atrial fibrillation I48.0 (3) CAD (coronary artery disease) Associated angina: without angina Coronary Disease-Associated Artery/Lesion type: [place] artery [place] vs. transplanted heart: [place] heart Qualified Code(s): I25.10 - Atherosclerotic heart disease of [place] coronary artery without angina pectoris
[2024-07-15 08:47] LABS: Albumin Globulin Ratio 1.5 (0.9-2); Albumin Level 3.8 gm/dl (3.4-5.0); BUN Creatinine Ratio 12.5 (10-20); Bilirubin,Total 0.6 mg/dl (0.2-1.0); Calcium 9.3 mg/dl (8.6-10.3); Est GFR (African American) 26.6 ml/min; Est GFR (Non-African American) 22.9 ml/min; Globulin 2.6 gm/dl (2.5-4.0); Magnesium 2.1 mg/dl (1.7-2.4); Potassium 4.2 mmol/L (3.5-5.1); Total Protein 6.4 gm/dl (6.0-8.3)
[2024-07-15 08:48] LABS: Basophils # (auto) 0.04 K/uL (0.00-0.20); Basophils % (auto) 0.8 %; Eosinophils # (auto) 0.02 K/uL (0.00-0.50); Eosinophils % (auto) 0.4 %; Hemoglobin 8.9 g/dl (14.0-18.0); INR 3.3 (0.9-1.1); Immature Granulocytes # (auto) 0.02 K/uL (0.01-0.20); Immature Granulocytes % (auto) 0.4 %; Lymphocytes # (auto) 1.13 K/uL (1.20-3.40); Lymphocytes % (auto) 22.9 %; Mean Corpuscular Hemoglobin 22.6 pg (25.0-34.0); Mean Corpuscular Hgb Conc 29.7 g/dL (32.0-36.0); Mean Corpuscular Volume 76.3 fL (80.0-100.0); Monocytes % (auto) 8.1 %; Neutrophils # (auto) 3.32 K/uL (1.40-6.50); Neutrophils % (auto) 67.4 %; Platelet Count 162 K/uL (130-400); Prothrombin Time 32.2 Seconds (9.0-12.0); RDW Coefficient of Variation 19.3 % (11.5-14.5); RDW Standard Deviation 52.5 fL (36.4-46.3); Red Blood Count 3.93 M/uL (4.70-6.10); White Blood Count 4.93 K/ul (4.8-10.8)
[2024-07-15 08:53] LABS: Troponin I High Sensitivity 192.2 pg/ml (0-20)
[2024-07-15] MEDS: AMIODARONE 200 MG TAB PO SCH (09:31)
[2024-07-15] MEDS: INSULIN ASPART PER UNIT CHARGE SC SCH (09:31)
[2024-07-15] MEDS: CYANOCOBALAMIN (B-12) 500 MCG TABLET PO SCH (09:32)
[2024-07-15] MEDS: CLOPIDOGREL BISULFATE 75 MG TAB PO SCH (09:32)
[2024-07-15] MEDS: FUROSEMIDE 40 MG/4 ML VIAL IV SCH (09:41)
[2024-07-15 10:29] LABS: Thyroid Stimulating Hormone 2.002 uIu/ml (0.300-4.500)
--- NOTE | 2024-07-15 13:06 | Electrocardiogram Report ---
Test Reason : Blood Pressure : */* mmHG Vent. Rate : 67 BPM Atrial Rate : 67 BPM P-R Int : 208 ms QRS Dur : 108 ms QT Int : 422 ms P-R-T Axes : * -41 68 degrees QTcB Int : 445 ms Normal sinus rhythm with frequent Premature atrial complexes Left axis deviation Low voltage QRS Incomplete right bundle branch block Cannot rule out Anterior infarct (cited on or before 21-Apr-2024) Abnormal ECG When compared with ECG of 14-May-2024 12:08, (unconfirmed) No significant change was found Confirmed by Navid Parsons ([id number]) on 07/15/2024 1:05:35 PM Referred By: REFERRED SELF Confirmed By: Navid Parsons
--- NOTE | 2024-07-15 14:42 | XCELERA ---
[id number]
[2024-07-15] MEDS: WARFARIN SOD 2.5 MG TAB PO SCH (15:46)
--- NOTE | 2024-07-15 16:52 | Billing Data ---
Date of Service July 14, 2024 Coding Level of Care Code 29417 INT INP/OBS CARE
--- NOTE | 2024-07-15 17:55 | Ultrasound Report ---
US renal/blad retro comp CLINICAL HISTORY: JAMAAL/CKD TECHNIQUE: Multiple sonographic real-time images of the kidneys and bladder were obtained. COMPARISON: None available at the time of this dictation. FINDINGS: The right kidney measures 9.5 cm in length, and the left kidney measures 9.6 cm in length. The right kidney is normal in size, contour, cortical thickness, and echogenicity. No hydronephrosis is identified. No renal lesion is identified. The left kidney is normal in size, contour, cortical thickness and echogenicity. No hydronephrosis i s identified. Multiple cysts noted, the largest measuring 1.8 cm. The bladder is partially distended. Prostatomegaly is noted. Ascites is seen. IMPRESSION: 1. Unremarkable renal ultrasound in particular no evidence of hydronephrosis in this patient with ac joseline kidney injury. 2. Ascites. ACT 112: Negative or not required by law. Electronically signed by: Joey Cheema M.D. 07/15/2024 5:54 PM
--- NOTE | 2024-07-15 18:26 | Hospitalist Progress Note ---
Date of Service July 15, 2024 Assessment & Plan (1) Acute on chronic heart failure with preserved ejection fraction: Plan: P/w 1 wk hx of worsening SOB and leg swelling, abdominal swelling. CXR here with small left pleural effusion, pulm edema. With a h/o CKD stage 4. Renal US here with ascites noted With a h/o CABG, stents TTE 04/2024 LVEF 55-60% and repeat limited ECHO here with LVEF 55-60%, severe LVH, mild RV dysfunction Pt on torsemide 20mg daily, compliant with medications. Does admit to not watching sodium carefully and was drinking a lot of iced tea recently BNP 640 on admission and Trop 173.5/190/190 likely demand ischemia.ECG without ischemic changes TSH normal Diuresing well and renal function improving since admission COntinue lasix 40mg IV bid and goal net neg 1-2L daily Appreciate Cardio consult COntinue daily weights, strict I/Os, low Na+ diet, fluid restrict, education given Follow BMP, magnesium--> gave 1 gram IV mag today BPs fairly well controlled (2) Paroxysmal atrial fibrillation: Plan: known hx of AFib, s/p MAZE procedure developed a-flutter. Has a h/o cardioversion this year pt on anticoagulation with warfarin ( 5mg sat/sun and rest of the week 2.5mg, target 2-3INR)--> INR today 3.3-ok to continue home doses coumadin today (skipped dose on 07/14) EKG current in NSR with sinus arrhythmia here but was in Afib at Cardiology office prior to admission c/w Amiodarone 200mg daily monitor on tele has a h/o profound bradycardia on metoprolol while on amiodarone in the past (3) CAD (coronary artery disease): Plan: s/p CABG 01/25 no chest pain. 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 AOCD, Fe deficiency, no obvious bleeding, B12, folate, TSH all recently normal pt had iron transfusion x 2 recently prior to admission Hgb 8.9 monitor CBC (7) Hyperlipidemia: Plan: c/w Atorvastatin 40mg Plan DVT proph-Coumadin Dispo-continued stay on med-tele Admission and Anticipated Discharge Date Admission Date: July 14, 2024 Subjective Pt feeling a little less swollen today. Still LITTLE. Making a lot of urine today. Feels frustrated with not being recovered since his CABG in january. I discussed his care with Cardiology Tele with 1st degree AVB, sinus rhythm rates 50-80s, some PACs Physical Exam Constitutional: WD/WN, vitals as above Respiratory: normal respiratory effort; no cough Auscultation: + crackles (bibasilar); no rhonchi and no wheezes Cardiovascular: Rate/Rhythm: regular rate and regular rhythm Heart Sounds: no murmur Extremities: + edema (3+ pitting edema to thighs bilat) Psychiatric: A+Ox3, euthymic affect Results & Data Results & Data Vital Signs (Past 12 Hours) Vital Signs Temp Pulse Pulse Resp BP Pulse Ox O2 Del Method 07/15/24 14:53 36.3 C L 62 18 150/71 H 95 Room Air 07/15/24 14:01 60 07/15/24 11:28 36.7 C 61 18 128/64 95 Room Air 07/15/24 08:21 36.6 C 70 18 133/66 93 Room Air 07/15/24 07:33 Room Air 07/15/24 07:07 57 L Laboratory Results CBC, BMP, INR, magnesium, HgbA1C reviewed PG Care Time/CCT Total # of Minutes Spent Total Time Spent with Patient: Total time spent is greater than 50% in coordination of care (as documented) at patient's floor/unit and/or counseling patient: Coding Level of Care Code 46988 SUB INP/OBS CARE 2/35MIN Diagnoses Acute on chronic heart failure with preserved ejection fraction I50.33 Paroxysmal atrial fibrillation I48.0 Coronary artery disease involving iro[place] coronary artery of iroquois heart without angina pectoris I25.10 Coronary Disease-Associated Artery/Lesion type: iroquois artery [place] vs. transplanted heart: iroquois heart Associated angina: without angina Type 2 diabetes mellitus with stage 3a chronic kidney disease, without long-term current use of insulin E11.22; N18.31 Diabetes mellitus type: type 2 Diabetes mellitus mcc insulin use: without outside property agent use Diabetes mellitus complication status: with kidney complications Diabetes mellitus complication detail: with chronic kidney disease Chronic kidney disease stage: stage 3 (moderate) Chronic kidney disease stage 3 subtype: stage 3a (GFR 45-59) CKD stage 4 due to type 2 diabetes mellitus E11.22; N18.4 Anemia due to stage 4 chronic kidney disease N18.4; D63.1 Chronic kidney disease stage: stage 4 (severe) Mixed hyperlipidemia E78.2 Hyperlipidemia type: mixed hyperlipidemia (3) CAD (coronary artery disease) Coronary Disease-Associated Artery/Lesion type: iroquois artery [place] vs. transplanted heart: iroquois heart Associated angina: without angina Qualified Code(s): I25.10 - Atherosclerotic heart disease of iroquois coronary artery without angina pectoris (4) Diabetes mellitus Diabetes mellitus type: type 2 Diabetes mellitus outside property agent insulin use: without outside property agent use Diabetes mellitus complication status: with kidney complications Diabetes mellitus complication detail: with chronic kidney disease Chronic kidney disease stage: stage 3 (moderate) Chronic kidney disease stage 3 subtype: stage 3a (GFR 45-59) Qualified Code(s): E11.22 - Type 2 diabetes mellitus with diabetic chronic kidney disease; N18.31 - Chronic kidney disease, stage 3a (6) Anemia due to chronic kidney disease Chronic kidney disease stage: stage 4 (severe) Qualified Code(s): N18.4 - Chronic kidney disease, stage 4 (severe); D63.1 - Anemia in chronic kidney disease (7) Hyperlipidemia Hyperlipidemia type: mixed hyperlipidemia Qualified Code(s): E78.2 - Mixed hyperlipidemia
[2024-07-16 06:51] LABS: Basophils # (auto) 0.02 K/uL (0.00-0.20); Basophils % (auto) 0.5 %; Hematocrit (blood only) 27.2 % (42.0-52.0); Hemoglobin 8.4 g/dl (14.0-18.0); Immature Granulocytes # (auto) 0.01 K/uL (0.01-0.20); Immature Granulocytes % (auto) 0.2 %; Lymphocytes # (auto) 1.05 K/uL (1.20-3.40); Lymphocytes % (auto) 23.7 %; Mean Corpuscular Hgb Conc 30.9 g/dL (32.0-36.0); Mean Corpuscular Volume 74.5 fL (80.0-100.0); Mean Platelet Volume 9.8 fL (9.4-12.4); Neutrophils # (auto) 2.95 K/uL (1.40-6.50); Neutrophils % (auto) 66.6 %; Platelet Count 139 K/uL (130-400); RDW Coefficient of Variation 19.6 % (11.5-14.5); RDW Standard Deviation 52.1 fL (36.4-46.3); Red Blood Count 3.65 M/uL (4.70-6.10); White Blood Count 4.43 K/ul (4.8-10.8)
[2024-07-16 07:19] LABS: INR 2.9 (0.9-1.1); Prothrombin Time 28.5 Seconds (9.0-12.0)
[2024-07-16 07:54] LABS: Albumin Globulin Ratio 1.4 (0.9-2); Albumin Level 3.6 gm/dl (3.4-5.0); BUN Creatinine Ratio 13.3 (10-20); Bilirubin,Total 0.5 mg/dl (0.2-1.0); Calcium 9.1 mg/dl (8.6-10.3); Creatinine Clr Calc Pharmacy 29.2 ml/min; Est GFR (African American) 23.3 ml/min; Est GFR (Non-African American) 20.1 ml/min; Globulin 2.5 gm/dl (2.5-4.0); Potassium 4.1 mmol/L (3.5-5.1); Total Protein 6.1 gm/dl (6.0-8.3)
--- NOTE | 2024-07-16 15:48 | Hospitalist Progress Note ---
Date of Service July 16, 2024 Assessment & Plan (1) Acute on chronic heart failure with preserved ejection fraction: Plan: P/w 1 wk h/o worsening SOB and leg swelling, abdominal swelling, weight gain. CXR here with small left pleural effusion, pulm edema. With a h/o CKD stage 4. Renal US here with ascites noted With a h/o CABG, stents TTE 04/2024 LVEF 55-60% and repeat limited ECHO here with LVEF 55-60%, severe LVH, mild RV dysfunction Pt on torsemide 20mg daily, compliant with medications. 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 Has a h/o cardioversion this year pt on anticoagulation with warfarin ( 5mg sat/sun and rest of the week 2.5mg, target 2-3INR)--> INR 2.9 (skipped dose on 07/14) EKG current in NSR with sinus arrhythmia here but was in Afib at Cardiology office prior to admission Had brief PAT run overnight 07/16 but otherwise 1st deg AVB, rates 50-60s c/w Amiodarone 200mg daily monitor on tele has a h/o profound bradycardia on metoprolol while on amiodarone in the past (3) CAD (coronary artery disease): Plan: s/p CABG 01/25 no chest pain c/w Plavix 75mg daily C/w Atorvastatin 40mg daily (4) Diabetes mellitus: Plan: known hx of DM2 on oral meds last A1c 05/27, 6.5% and repeat here same holding home glimepiride 1mg daily while in hospital Continue BSGs, Novolog SSI (5) CKD stage 4 due to type 2 diabetes mellitus: Plan: Known hx of CKD 4, baseline document reviewer around 2.9 Social Media 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 AOCD, Fe deficiency, no obvious bleeding, B12, folate, TSH all recently normal pt had iron transfusion x 2 recently prior to admission Hgb 8.4 and stable monitor CBC (7) Hyperlipidemia: Plan: c/w Atorvastatin 40mg (8) Abnormal urinalysis: Plan: UA somewhat abnormal, Ur cx with pinpoint growth he has no symptoms of UTI hold treatment for now, follow cx Plan DVT proph-Coumadin Dispo-continued stay on med-tele Admission and Anticipated Discharge Date Admission Date: July 14, 2024 Subjective Pt feeling less swollen in abdomen. No SOB, no CP. Is moving bowels. Tele with small PAT run and a 1.6 sec pause, otherwise NSR rates 60s, 1st degree AV block Physical Exam Constitutional: WD/WN, vitals as above Respiratory: normal respiratory effort; no cough Auscultation: + crackles (bibasilar); no rhonchi and no wheezes Cardiovascular: Rate/Rhythm: regular rate and regular rhythm Heart Sounds: no murmur Extremities: + edema (2+ pitting edema to thighs bilat) Gastrointestinal (Abdomen): normal bowel sounds, soft, nontender, no hepatosplenomegaly Psychiatric: A+Ox3, euthymic affect Results & Data Results & Data Vital Signs (Past 12 Hours) Vital Signs Temp Pulse Pulse Resp BP Pulse Ox O2 Del Method 07/16/24 15:41 36.7 C 64 22 148/58 H 95 Room Air 07/16/24 14:10 53 L 07/16/24 12:03 36.6 C 68 24 152/68 H 95 Room Air 07/16/24 08:10 Room Air 07/16/24 08:07 36.6 C 65 18 125/61 93 Room Air 07/16/24 07:14 65 Laboratory Results CBC, BMP, INR, LFTs, Urine cx reviewed PG Care Time/CCT Total # of Minutes Spent Total Time Spent with Patient: Total time spent is greater than 50% in coordination of care (as documented) at patient's floor/unit and/or counseling patient: Coding Level of Care Code 24009 SUB INP/OBS CARE MIN Diagnoses Acute on chronic heart failure with preserved ejection fraction I50.33 Paroxysmal atrial fibrillation I48.0 Coronary artery disease involving [place] coronary artery of [place] heart without angina pectoris I25.10 Coronary Disease-Associated Artery/Lesion type: [place] artery [place] vs. transplanted heart: [place] heart Associated angina: without angina Type 2 diabetes mellitus with stage 3a chronic kidney disease, without long-term current use of insulin E11.22; N18.31 Diabetes mellitus type: type 2 Diabetes mellitus shelter insulin use: without intermission coordinator use Diabetes mellitus complication status: with kidney complications Diabetes mellitus complication detail: with chronic kidney disease Chronic kidney disease stage: stage 3 (moderate) Chronic kidney disease stage 3 subtype: stage 3a (GFR 45-59) CKD stage 4 due to type 2 diabetes mellitus E11.22; N18.4 Anemia due to stage 4 chronic kidney disease N18.4; D63.1 Chronic kidney disease stage: stage 4 (severe) Mixed hyperlipidemia E78.2 Hyperlipidemia type: mixed hyperlipidemia Abnormal urinalysis R82.90 (3) CAD (coronary artery disease) Coronary Disease-Associated Artery/Lesion type: [place] artery [place] vs. transplanted heart: k[place] heart Associated angina: without angina Qualified Code(s): I25.10 - Atherosclerotic heart disease of [place] coronary artery without angina pectoris (4) Diabetes mellitus Diabetes mellitus type: type 2 Diabetes mellitus intermission coordinator insulin use: without shelter use Diabetes mellitus complication status: with kidney complications Diabetes mellitus complication detail: with chronic kidney disease Chronic kidney disease stage: stage 3 (moderate) Chronic kidney disease stage 3 subtype: stage 3a (GFR 45-59) Qualified Code(s): E11.22 - Type 2 diabetes mellitus with diabetic chronic kidney disease; N18.31 - Chronic kidney disease, stage 3a (6) Anemia due to chronic kidney disease Chronic kidney disease stage: stage 4 (severe) Qualified Code(s): N18.4 - Chronic kidney disease, stage 4 (severe); D63.1 - Anemia in chronic kidney disease (7) Hyperlipidemia Hyperlipidemia type: mixed hyperlipidemia Qualified Code(s): E78.2 - Mixed hyperlipidemia
--- NOTE | 2024-07-16 22:04 | Cardiology Progress Note ---
Date of Service July 16, 2024 Assessment & Plan (1) Acute on chronic heart failure with preserved ejection fraction: Plan: 2. CAD post three-vessel CABG 01/2024 3. Atrial flutter/atrial fibrillation post maze/POLLY clipsinus rhythm maintained on amiodarone; therapeutic on warfarin 4. CKD 5. Hypertension Diuresing well. Negative more than 2 L yesterday Renal function stable Symptoms improving but not at baseline. Still with ascites/small pleural eff usion/lower extremity edema and JVD on exam Continue Lasix 40 mg IV twice daily Continue strict I's and O's, daily weights Continue amiodarone, anticoagulation with warfarin Continue clopidogrel, statin Will follow Admission and Anticipated Discharge Date Admission Date: July 14, 2024 Subjective Up walking halls this morning. Breathing improved admission not at baseline. Improved swelling in abdomen/legs today. No other new issues. Negative more than 2L yesterday. Recorded weight down 8 lbs Review of Systems Review of Systems: All systems reviewed & are unremarkable except as noted in HPI & below Physical Exam Physical Exam: General: Comfortable HEENT: Sclerae anicteric Lungs: Decreased breath at the bases, few crackles Cardiac: Regular rate and rhythm, no murmurs. Positive JVP around 9-10 Vascular: 2+ radial Abdomen: Soft, nontender Extremities: Well perfused, 1-2+ pitting edema to mid shins Neuro: Nonfocal Psych: Alert orient x3, normal affect and mood Results & Data Vital Signs (Past 12 Hours) Vital Signs Temp Pulse Pulse Resp BP Pulse Ox O2 Del Method 07/16/24 19:21 98.1 F 53 L 18 135/65 95 Room Air 07/16/24 15:41 98.1 F 64 22 148/58 H 95 Room Air 07/16/24 14:10 53 L 07/16/24 12:03 97.9 F 68 24 152/68 H 95 Room Air PG Care Time/CCT Total # of Minutes Spent Total Time Spent with Patient: Total time spent is greater than 50% in coordination of care (as documented) at patient's floor/unit and/or counseling patient: Coding Level of Care Code 53997 SUB INP/OBS CARE 2/35MIN Diagnoses Acute on chronic heart failure with preserved ejection fraction I50.33
[2024-07-17 06:45] LABS: Basophils # (auto) 0.02 K/uL (0.00-0.20); Basophils % (auto) 0.4 %; Eosinophils # (auto) 0.01 K/uL (0.00-0.50); Eosinophils % (auto) 0.2 %; Hematocrit (blood only) 27.7 % (42.0-52.0); Hemoglobin 8.4 g/dl (14.0-18.0); Immature Granulocytes # (auto) 0.02 K/uL (0.01-0.20); Immature Granulocytes % (auto) 0.4 %; Lymphocytes # (auto) 1.02 K/uL (1.20-3.40); Lymphocytes % (auto) 22.7 %; Mean Corpuscular Hemoglobin 22.6 pg (25.0-34.0); Mean Corpuscular Hgb Conc 30.3 g/dL (32.0-36.0); Mean Corpuscular Volume 74.5 fL (80.0-100.0); Mean Platelet Volume 10.2 fL (9.4-12.4); Monocytes % (auto) 8.9 %; Neutrophils # (auto) 3.03 K/uL (1.40-6.50); Neutrophils % (auto) 67.4 %; Platelet Count 138 K/uL (130-400); RDW Coefficient of Variation 19.5 % (11.5-14.5); RDW Standard Deviation 51.1 fL (36.4-46.3); Red Blood Count 3.72 M/uL (4.70-6.10)
[2024-07-17 07:05] LABS: Albumin Globulin Ratio 1.4 (0.9-2); Albumin Level 3.6 gm/dl (3.4-5.0); BUN Creatinine Ratio 12.6 (10-20); Bilirubin,Total 0.5 mg/dl (0.2-1.0); Creatinine Clr Calc Pharmacy 28.1 ml/min; Est GFR (African American) 22.5 ml/min; Est GFR (Non-African American) 19.4 ml/min; Globulin 2.6 gm/dl (2.5-4.0); Magnesium 1.9 mg/dl (1.7-2.4); Potassium 3.9 mmol/L (3.5-5.1); Total Protein 6.2 gm/dl (6.0-8.3)
[2024-07-17 07:16] LABS: Prothrombin Time 29.5 Seconds (9.0-12.0)
--- NOTE | 2024-07-17 10:23 | Cardiology Progress Note ---
Date of Service July 17, 2024 Assessment & Plan (1) Acute on chronic heart failure with preserved ejection fraction: Plan: 2. CAD post three-vessel CABG 01/2024 3. Atrial flutter/atrial fibrillation post maze/POLLY clipsinus rhythm maintained on amiodarone; therapeutic on warfarin 4. CKD 5. Hypertension Patient continuing to diurese well. Negative additional 1.7L. Symptoms improving but not at baseline. Still appears hypervolemic on exam today. Lasix held awaiting renal function, recommend resuming. Recommend: Continue Lasix 40 mg IV twice daily Continue strict I's and O's, daily weights Continue amiodarone, anticoagulation with warfarin Continue clopidogrel, statin Will follow Admission and Anticipated Discharge Date Admission Date: July 14, 2024 Supervising Physician Co-Signing Physician Notes Patient seen and examined. Agree with assessment and plan as oultined by TERRY Win. Patient continues to diurese well. Small increase in SCr. Up walking in halls today and breathing improved but still had 1 episode where became short of breath and had to sit down. LE edema/LT pleural effusion improved on exam today but some congestion persists. Recommend continued IV diuresis today. Potential transition to PO diuretics tomorrow. Subjective Patient feeling fairy well this morning, walking the halls without significant dyspnea. Further improvement in abdominal/LE edema but not to baseline. Slept well without orthopnea or PND. Negative an additional 1.7L, net -4.6L. Recorded weight down 3.5 pounds. Cr is up to 3.02 this morning Physical Exam Physical Exam: General: Comfortable HEENT: Sclerae anicteric Lungs: Decreased breath at the bases, few crackles Cardiac: Regular rate and rhythm, no murmurs. Positive JVP Vascular: 2+ radial Abdomen: Soft, nontender Extremities: Well perfused, 1+ pitting edema to mid shins Neuro: Nonfocal Psych: Alert orient x3, normal affect and mood Results & Data Vital Signs (Past 12 Hours) Vital Signs Temp Pulse Pulse Resp BP Pulse Ox O2 Del Method 07/17/24 08:22 36.6 C 62 18 134/74 95 Room Air 07/17/24 07:36 Room Air 07/17/24 07:11 64 07/17/24 02:47 36.4 C L 62 18 112/61 95 Room Air 07/17/24 00:14 54 L 07/16/24 22:55 36.6 C 58 L 16 134/66 94 Room Air PG Care Time/CCT Total # of Minutes Spent Total Time Spent with Patient: Total time spent is greater than 50% in coordination of care (as documented) at patient's floor/unit and/or counseling patient: Coding Level of Care Code 53059 SUB INP/OBS CARE 3/50MIN Diagnoses Acute on chronic heart failure with preserved ejection fraction I50.33
--- NOTE | 2024-07-17 10:34 | Nephrology Consultation ---
Date of Consultation July 17, 2024 Assessment & Plan (1) Acute kidney injury: Non-oliguric. Electrolytes are normal. Volume status hypervolemic but improving. There is no emergent indication for dialysis at this time. No obstruction appreciated on renal US. UA notable for >30 WBC, 3-5 RBC, 3-5 hyaline casts. Findings suggestive of cystitis. Repeat UA/micro requested. JAMAAL attributed to hemodynamic changes and CRS. Medications are appropriately dosed for kidney dysfunction. Document strict I/O's. Repeat metabolic profile tomorrow AM. (2) Anemia due to chronic kidney disease: History of iron deficiency anemia. Hemoglobin tending down over past several mon ths. IV iron recently provided as outpatient. Hemoccult testing was negative. Wade denies any signs of blood loss. Additional 125 mg IV Ferrlecit has been requested. Iron profile will be repeated with AM labs. Epogen 09328 units SQ will be provided now. Repeat H/H tomorrow AM. (3) CKD (chronic kidney disease): CKD IV A3. Baseline creatinine 2.1-2.9 mg/dL. Non-nephrotic. Albuminuria quantified at ~500 mg on 24 hour sample previously. No monoclonal abnormality was detected in the urine. PLA2r testing previously negative. CKD attributed to DKD, arterionephrosclerosis. Followed by Dr. Martínez as outpatient. Wade was taken off enalapril in the past due to worsening kidney function. He remains off RAASi. Has not been maintained on SGLT2i. Once volume status is controlled and kidney function remains stable, I would advise revisiting RAASi and SGLT2i therapy in the future. (4) Acute on chronic heart failure with preserved ejection fraction: Cardiology following. Clinically improving with diuretics. Wade reports daily symptomatic improvement. Diuretics are being managed with cardiology. Additional IV furosemide has been provided this AM. Sinus arrhythmia on monitor. (5) Paroxysmal atrial fibrillation: History of MAZE procedure and more recently DC cardioversion for recurrent atrial flutter. Found to be back in atrial fibrillation in the cardiology clinic prior to admission. Now sinus rhythm with PACs on monitor. Remains on amiodarone. Anticoagulated with warfarin. (6) CAD (coronary artery disease): s/p 3v CABG in January. History of Present Illness Reason for Consultation: Volume overload,Rt heart failure,JAMAAL/CKD Requesting Physician: Merna Skinner MD Attending Physician: Merna Skinner MD History of Present Illness Mr. Wade Hartman is a 73 year-old male with coronary artery disease (s/p CABG in January), HFpEF, paroxysmal atrial fibrillation (h/o MAZE procedure and DC cardioversion), diabetes mellitus II, hyperlipidemia, OA/DJD, and chronic kidney disease. Wade follows in the [facility] nephrology clinic with Dr. Martínez. Most recent follow up with Dr. Martínez was in May. At that time, creatinine was stable at 2.1 mg/dL. In June, creatinine was 3.22-->2.97 mg/dL. Enalapril was stopped due to elevated creatinine. Electrolytes have been normal. Prior evaluation of kidney dysfunction included a 24 hour urine collection documenting 500 mg of protein per day. No monoclonal protein was detected in the urine. PLA2r testing was negative. CKD has been attributed to DKD, arterionephrosclerosis, and a significant history of NSAID use. Wade presented to the cardiology clinic on July 14 for follow up evaluation regarding fluid retention. He reported significant lower extremity and abdominal edema increasing over several weeks. He was referred for inpatient management for acute HFrEF and acute kidney injury. Wade has been diuresing with IV furosemide. He reports symptomatic improvement. Abdominal and scrotal edema has dramatically improved and lower extremity edema is also improving. Wade reports some crist[place] nued fatigue but he otherwise feels well. He has intermittent palpitations but no sustained symptoms of arrhythmia. He has not experienced any syncope or presyncope. He is not experiencing any chest pain. Serum creatinine was 2.8 mg/dL on admission and 2.63 mg/dL on hospital day #2. Creatinine is 3.0 mg/dL today. Urine demonstrated >50 WBC, 3-5 RBC, and hyaline casts. Wade denies any urinary symptoms. Culture demonstrated pinpoint growth and is re incubating. Renal US did not demonstrate any concerning lesions or evidence of obstruction. Allergies Allergy/AdvReac Type Severity Reaction Status Date / Time No Known Drug Allergies Allergy Unknown Verified 07/14/24 17:42 Home Medications Medication Instructions Recorded Confirmed Type lancets 30 gauge (OneTouch #100 ea 01/29/24 07/14/24 Rx UltraSoft 2 Lancet) blood-glucose meter (OneTouch #1 ea 02/06/24 07/14/24 Rx Ultra2 Meter) warfarin 5 mg tablet 5 mg PO DAILY #90 tabs 03/23/24 07/14/24 Rx clopidogrel 75 mg tablet 75 mg PO QAM 04/27/24 07/14/24 History tamsulosin 0.4 mg capsule 0.4 mg PO PM 04/27/24 07/14/24 History folic acid 1 mg tablet 1 mg PO HS #90 tabs 05/05/24 07/14/24 Rx atorvastatin 40 mg tablet 40 mg PO QAM #90 tabs 05/19/24 07/14/24 Rx amiodarone 200 mg tablet 200 mg PO DAILY #30 tabs 06/02/24 07/14/24 Rx blood sugar diagnostic (OneTouch #100 ea 06/12/24 07/14/24 Rx Ultra Test strips) torsemide 20 mg tablet 20 mg PO DAILY #60 tabs 07/02/24 07/14/24 Rx cyanocobalamin (vitamin B-12) 1,000 mcg sublingual DAILY 07/14/24 07/14/24 History 1,000 mcg sublingual tablet glimepiride 1 mg tablet 1 mg PO QPM 07/14/24 07/14/24 History Patient History Medical History Anxiety Hx of gastroesophageal reflux (GERD) now controlled Nephrolithiasis present Hypertension Diabetes mellitus, type 2 Hyperlipidemia Valvular heart disease CKD stage 4 due to type 2 diabetes mellitus follows with Dr[address] Martínez Atrial fibrillation dx 2021 > no pacer > Warfarin > follows with Dr. Vasquez Renal mass CT A/P (07/05/23) "There is a cortical renal cyst formation on the right with some wall calcification" Benign paroxysmal positional vertigo H/O TIA (transient ischemic attack) and stroke pt unaware/ denies Multiple pulmonary nodules CT Chest (01/24/23) "Compared to a prior CT chest dated 01/02/2019, lung stable benign nodules measuring between 2 mm and 10 mm in size. No follow-up imaging is recommended." Surgical History History of cardiac cath 12/2023 > no stents History of cystoscopy Hx of heart bypass surgery triple at [place] 01/07/24 H/O umbilical hernia repair Status post hip replacement right H/O knee surgery bilat H/O colonoscopy 01/16/23 repeat 5 yrs Family History Father Coronary heart disease Myocardial infarction Brother Coronary heart disease Myocardial infarction Denies family history of Prostate cancer Breast cancer Colorectal cancer Social History Smoking Status: Never smoker Second Hand Exposure: No; Do You Dip or Chew Tobacco: No; Hx Alcohol Use: No Hx Substance Use: No Preferred Language: Irish Communication Ability: 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 Required: No Beliefs That Will Affect Care: None marital status: / Current Living Situation: Alone Other Information That Helps Us Care for You: No Feels Safe at Home: Yes Safety Concerns: Feels Safe At This Time Assistive Devices: None Assistive Devices Comment: reading glasses Review of Systems Review of Systems: All systems reviewed & are unremarkable except as noted in HPI & below Physical Exam Constitutional: well developed; no acute distress Eyes: + conjunctival abnormality (pallor) and + anicteric sclerae ENMT: Mouth: oral mucous membranes not dry Neck: normal visual inspection and trachea midline Respiratory: normal respiratory effort Auscultation: lungs clear to auscultation bilaterally Cardiovascular: Rate/Rhythm: regular rate Heart Sounds: normal S1 and normal S2 Vessels: + JVD (slightly increased) and normal peripheral pulses Extremities: + edema (+2 pitting BL to the knees) Musculoskeletal: Extremities: no cyanosis and no clubbing Skin: normal turgor; no jaundice Neurologic: Motor/Sensory: no tremor and no asterixis Psychiatric: Orientation: alert and oriented x 3 Results & Data Vital Signs (Past 12 Hours) Vital Signs Temp Pulse Pulse Resp BP Pulse Ox O2 Del Method 07/17/24 08:22 36.6 C 62 18 134/74 95 Room Air 07/17/24 07:36 Room Air 07/17/24 07:11 64 07/17/24 02:47 36.4 C L 62 18 112/61 95 Room Air 07/17/24 00:14 54 L 07/16/24 22:55 36.6 C 58 L 16 134/66 94 Room Air Laboratory Results Laboratory Results - last 24 hr 07/16/24 07/16/24 07/16/24 12:20 17:11 20:27 WBC RBC Hgb Hct MCV MCH MCHC RDW Std Deviation RDW Coeff of [place] Plt Count MPV Immature Gran % (Auto) Neut % (Auto) Lymph % (Auto) [place] % (Auto) Eos % (Auto) Baso % (Auto) Neut # (Auto) Lymph # (Auto) [place] # (Auto) Eos # (Auto) Baso # (Auto) Immature Gran # (Auto) PT INR Sodium Potassium Chloride Carbon Dioxide Anion Gap BUN Creatinine Est Cr Clr Drug Dosing Est GFR ( Amer) Est GFR (Non-Af Amer) BUN/Creatinine Ratio Glucose POC Glucose 124 H 116 H 145 H Calcium Magnesium Total Bilirubin AST ALT Alkaline Phosphatase Total Protein Albumin Globulin Albumin/Globulin Ratio 07/17/24 07/17/24 06:25 08:36 WBC 4.50 L RBC 3.72 L Hgb 8.4 L Hct 27.7 L MCV 74.5 L MCH 22.6 L MCHC 30.3 L RDW Std Deviation 51.1 H RDW Coeff of [place] 19.5 H Plt Count 138 MPV 10.2 Immature Gran % (Auto) 0.4 Neut % (Auto) 67.4 Lymph % (Auto) 22.7 [place] % (Auto) 8.9 Eos % (Auto) 0.2 Baso % (Auto) 0.4 Neut # (Auto) 3.03 Lymph # (Auto) 1.02 L [place] # (Auto) 0.40 Eos # (Auto) 0.01 Baso # (Auto) 0.02 Immature Gran # (Auto) 0.02 PT 29.5 H INR 3.0 H Sodium 144 Potassium 3.9 Chloride 109 H Carbon Dioxide 29 Anion Gap 6 BUN 38 H Creatinine 3.02 H Est Cr Clr Drug Dosing 28.1 Est GFR ( Amer) 22.5 Est GFR (Non-Af Amer) 19.4 BUN/Creatinine Ratio 12.6 Glucose 101 H POC Glucose 111 H Calcium 9.0 Magnesium 1.9 Total Bilirubin 0.5 AST 12 L ALT 12 Alkaline Phosphatase 77 Total Protein 6.2 Albumin 3.6 Globulin 2.6 Albumin/Globulin Ratio 1.4 Diagnostic Findings US renal/blad retro comp COMPARISON: None available at the time of this dictation. FINDINGS: The right kidney measures 9.5 cm in length, and the left kidney measures 9.6 cm in length. The right kidney is normal in size, contour, cortical thickness, and echogenicity. No hydronephrosis is identified. No renal lesion is identified. The left kidney is normal in size, contour, cortical thickness and echogenicity. No hydronephrosis is identified. Multiple cysts noted, the largest measuring 1.8 cm. The bladder is partially distended. Prostatomegaly is noted. Ascites is seen. IMPRESSION: 1. Unremarkable renal ultrasound in particular no evidence of hydronephrosis in this patient with acute kidney injury. 2. Ascites. XR chest 2V PA/lateral Comparison: Comparison is made to chest radiograph 10/15/2014 FINDINGS: Median sternotomy wires are unchanged. Aortic appendage clip is seen. Cardiomegaly is noted. Prominence and cephalization of the vasculature is seen. Trace left pleural effusion is seen. IMPRESSION: 1. Cardiomegaly and mild pulmonary edema. 2. Trace left pleural effusion. PG Care Time/CCT Total # of Minutes Spent Total Time Spent with Patient: Total time spent is greater than 50% in coordination of care (as documented) at patient's floor/unit and/or counseling patient: Coding Level of Care Code 75026 IN/OBS CONSULT LVL 4,60M Diagnoses Acute kidney injury N17.9 Anemia due to stage 4 chronic kidney disease N18.4; D63.1 Chronic kidney disease stage: stage 4 (severe) CKD (chronic kidney disease) N18.9 Acute on chronic heart failure with preserved ejection fraction I50.33 Paroxysmal atrial fibrillation I48.0 Coronary artery disease involving [place] coronary artery of [place] heart without angina pectoris I25.10 Coronary Disease-Associated Artery/Lesion type: [place] artery [place] vs. transplanted heart: [place] heart Associated angina: without angina (2) Anemia due to chronic kidney disease Chronic kidney disease stage: stage 4 (severe) Qualified Code(s): N18.4 - Chronic kidney disease, stage 4 (severe); D63.1 - Anemia in chronic kidney disease (6) CAD (coronary artery disease) Coronary Disease-Associated Artery/Lesion type: [place] artery [place] vs. transplanted heart: [place] heart Associated angina: without angina Qualified Code(s): I25.10 - Atherosclerotic heart disease of [place] coronary artery without angina pectoris
[2024-07-17] MEDS: FUROSEMIDE 40 MG/4 ML VIAL IV ONE (10:39)
[2024-07-17] MEDS: SODIUM FERRIC GLUCONATE 125 MG in 0.9 % SODIUM CHLORIDE 100 ML IV SCH (11:49)
[2024-07-17 12:25] LABS: Appearance Urine Cloudy (Clear); Bacteria Urine Automated 4+ (None Seen); Bilirubin Urine Negative (Negative); Blood Urine Negative (Negative); Color Urine Yellow; Epithelial Cell Urine Auto 0-2 /hpf (0-2); Glucose Urine UA Negative (Negative); Ketones Urine Negative (Negative); Leukocyte Esterase Urine 3+ (Negative); Nitrite Urine Negative (Negative); Protein Urine Trace (Negative); RBC Urine Automated 0-2 /hpf (0-2); Specific Gravity Urine 1.011 (1.000-1.030); Urobilinogen Urine Negative (Negative); WBC Urine Automated >50 /hpf (0-5)
[2024-07-17] MEDS: EPOETIN ALFA 10,000 UNITS/ML VIAL SQ SCH (12:56)
--- NOTE | 2024-07-17 19:44 | Hospitalist Progress Note ---
Date of Service July 17, 2024 Assessment & Plan (1) Acute on chronic heart failure with preserved ejection fraction: Plan: P/w 1 wk h/o worsening SOB and leg swelling, abdominal swelling, weight gain. CXR here with small left pleural effusion, pulm edema. With a h/o CKD stage 4. Renal US w/ ascites noted, otherwise fairly unremarkable With a h/o CABG in 01/2024, cardiac stents TTE 04/2024 LVEF 55-60% and repeat limited ECHO here with LVEF 55-60%, severe LVH, mild RV dysfunction Pt on torsemide 20mg daily at home, compliant with medications. Does admit to not closely following a low sodium diet and was drinking a lot of iced tea recently BNP 640 on admission and Trop 173.5/190/190 likely demand ischemia. 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 Has a h/o cardioversion this year pt on anticoagulation with warfarin (5mg sat/sun and rest of the week 2.5mg, t arget 2-3INR)--> INR remains therapeutic at 3.0 (skipped dose on 07/14) EKG current in NSR with sinus arrhythmia here but was in Afib at Cardiology office prior to admission Had brief PAT run overnight 07/16 but otherwise 1st deg AVB, rates 50-60s c/w Amiodarone 200mg daily monitor on tele has a h/o profound bradycardia on metoprolol in the past-avoid beta-blockers (3) CAD (coronary artery disease): Plan: s/p CABG 01/25 no chest pain Continue Plavix and atorvastatin (4) Diabetes mellitus: Plan: known hx of DM2 on oral meds last A1c 05/27, 6.5% and repeat here same holding home glimepiride 1mg daily while in hospital Continue BSGs, Novolog SSI (5) CKD stage 4 due to type 2 diabetes mellitus: Plan: Known hx of CKD 4, 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 AOCD, Fe deficiency, no obvious bleeding, B12, folate, TSH all recently normal pt had iron transfusion x 2 recently prior to admission Hgb 8.4 and stable monitor CBC Nephrology ordered iron studies for the morning and may need Procrit (7) Hyperlipidemia: Plan: c/w Atorvastatin 40mg (8) Abnormal urinalysis: Plan: UA somewhat abnormal, Ur cx with pinpoint growth he has no symptoms of UTI hold treatment for now, follow cx Plan DVT proph-Coumadin Dispo-continued stay on med-tele, will likely need at least 2-3 more days of IV diuresis prior to discharge Admission and Anticipated Discharge Date Admission Date: July 14, 2024 Subjective Feeling better, less swollen in the legs, less short of breath. Was ambulating the halls. Still feels his scrotum is swollen. Telemetry with sinus bradycardia with rates in 40s to 50s, some PACs I discussed his care with nephrology Physical Exam Constitutional: WD/WN, vitals as above Respiratory: normal respiratory effort; no cough Auscultation: + crackles (bibasilar); no rhonchi and no wheezes Cardiovascular: Rate/Rhythm: regular rate and regular rhythm Heart Sounds: no murmur Extremities: + edema (2+ pitting edema to thighs bilat, slightly improved) Gastrointestinal (Abdomen): normal bowel sounds, soft, nontender, no hepatosplenomegaly Psychiatric: A+Ox3, euthymic affect Results & Data Results & Data Vital Signs (Past 12 Hours) Vital Signs Temp Pulse Pulse Resp BP BP Pulse Ox 07/17/24 19:18 36.9 C 61 18 138/64 95 07/17/24 14:57 36.8 C 51 L 18 147/65 H 97 07/17/24 14:46 63 07/17/24 11:56 36.8 C 66 18 138/66 96 07/17/24 08:22 36.6 C 62 18 134/74 95 O2 Del Method 07/17/24 19:18 Room Air 07/17/24 14:57 Room Air 07/17/24 14:46 07/17/24 11:56 Room Air 07/17/24 08:22 Room Air Laboratory Results BMP, CBC, INR, magnesium reviewed PG Care Time/CCT Total # of Minutes Spent Total Time Spent with Patient: Total time spent is greater than 50% in coordination of care (as documented) at patient's floor/unit and/or counseling patient: Coding Level of Care Code 05306 SUB INP/OBS CARE 2/35MIN Diagnoses Acute on chronic heart failure with preserved ejection fraction I50.33 Paroxysmal atrial fibrillation I48.0 Coronary artery disease involving [place] coronary artery of [place] heart without angina pectoris I25.10 Associated angina: without angina Coronary Disease-Associated Artery/Lesion type: [place] artery [place] vs. transplanted heart: [place] heart Type 2 diabetes mellitus with stage 3a chronic kidney disease, without long-term current use of insulin E11.22; N18.31 Chronic kidney disease stage: stage 3 (moderate) Chronic kidney disease stage 3 subtype: stage 3a (GFR 45-59) Diabetes mellitus complication detail: with chronic kidney disease Diabetes mellitus complication status: with kidney complications Diabetes mellitus care home insulin use: without care home use Diabetes mellitus type: type 2 CKD stage 4 due to type 2 diabetes mellitus E11.22; N18.4 Anemia due to stage 4 chronic kidney disease N18.4; D63.1 Chronic kidney disease stage: stage 4 (severe) Mixed hyperlipidemia E78.2 Hyperlipidemia type: mixed hyperlipidemia Abnormal urinalysis R82.90 (3) CAD (coronary artery disease) Associated angina: without angina Coronary Disease-Associated Artery/Lesion type: [place] artery [place] vs. transplanted heart: [place] heart Qualified Code(s): I25.10 - Atherosclerotic heart disease of [place] coronary artery without angina pectoris (4) Diabetes mellitus Chronic kidney disease stage: stage 3 (moderate) Chronic kidney disease stage 3 subtype: stage 3a (GFR 45-59) Diabetes mellitus complication detail: with chronic kidney disease Diabetes mellitus complication status: with kidney complications Diabetes mellitus care home insulin use: without care home use Diabetes mellitus type: type 2 Qualified Code(s): E11.22 - Type 2 diabetes mellitus with diabetic chronic kidney disease; N18.31 - Chronic kidney disease, stage 3a (6) Anemia due to chronic kidney disease Chronic kidney disease stage: stage 4 (severe) Qualified Code(s): N18.4 - Chronic kidney disease, stage 4 (severe); D63.1 - Anemia in chronic kidney disease (7) Hyperlipidemia Hyperlipidemia type: mixed hyperlipidemia Qualified Code(s): E78.2 - Mixed hyperlipidemia
[2024-07-18 07:58] LABS: Hematocrit (blood only) 30.9 % (42.0-52.0); Hemoglobin 9.2 g/dl (14.0-18.0); Mean Corpuscular Hemoglobin 22.8 pg (25.0-34.0); Mean Corpuscular Hgb Conc 29.8 g/dL (32.0-36.0); Mean Corpuscular Volume 76.5 fL (80.0-100.0); Mean Platelet Volume 9.3 fL (9.4-12.4); Platelet Count 142 K/uL (130-400); RDW Coefficient of Variation 19.9 % (11.5-14.5); RDW Standard Deviation 53.5 fL (36.4-46.3); Red Blood Count 4.04 M/uL (4.70-6.10); White Blood Count 4.28 K/ul (4.8-10.8)
[2024-07-18 08:16] LABS: Albumin Level 3.9 gm/dl (3.4-5.0); BUN Creatinine Ratio 13.6 (10-20); Calcium 9.1 mg/dl (8.6-10.3); Creatinine Clr Calc Pharmacy 30.1 ml/min; Est GFR (African American) 24.6 ml/min; Est GFR (Non-African American) 21.3 ml/min; Magnesium 1.9 mg/dl (1.7-2.4); Phosphorus 3.2 mg/dl (2.5-4.9); Potassium 3.6 mmol/L (3.5-5.1)
[2024-07-18 08:22] LABS: INR 3.1 (0.9-1.1); Prothrombin Time 30.7 Seconds (9.0-12.0)
[2024-07-18 08:36] LABS: Ferritin 57.7 ng/ml (8-388)
[2024-07-18] MEDS: FUROSEMIDE 40 MG/4 ML VIAL IV SCH (08:57)
--- NOTE | 2024-07-18 09:03 | Nephrology Progress Note ---
Date of Service July 18, 2024 Assessment & Plan (1) Acute kidney injury: Plan: * JAMAAL due to CRSresolved. Baseline creatinine has been 2.1-2.9 depending upon volume status * No acute indication for hemodialysis today * Patient continues to respond well to IV diuretic therapy * Consider transitioning to torsemide 40 mg po daily * No obstruction appreciated on renal US. * Monitor daily BMP, UO * If discharge is anticipated, recommend torsemide 40 mg daily and schedule follow-up nephrology outpatient visit with Dr. Martínez within 7-10 days * Reviewed 1500 mg NaCl restricted diet w/ patient today * Discussed weight based diuretic dosing w/ patient today (2) Anemia due to chronic kidney disease: Plan: * LORNE. FOBT negative. No overt blood loss. * Ferrlecit 125 mg IV x 3 provided. * Epogen 10,000 units subcu administered 07/17/2024 * Hgb is trending upward. (3) CKD (chronic kidney disease): Plan: * CKD stage G4/A3. Baseline creatinine 2.1-2.9 mg/dL. Non-nephrotic. Albuminuria quantified at 500 mg/day. No monoclonal abnormality was detected in the urine. PLA2r testing previously negative. CKD attributed to DKD, arterion ephrosclerosis. Followed by Dr. Martínez as outpatient. * RAASi stopped due to progressive JAMAAL in the past. * Has not been maintained on SGLT2i. * Consider RAASi and SGLT2i therapy as outpatient (4) Acute on chronic heart failure with preserved ejection fraction: Plan: * Cardiology following. Clinically improving with diuretics. Wade reports daily symptomatic improvement. Diuretics are being managed with cardiology. Additional IV furosemide has been provided this AM. (5) Paroxysmal atrial fibrillation: Plan: * History of MAZE procedure and DC cardioversion for recurrent atrial flutter. Remains on amiodarone. Anticoagulated with warfarin. (6) CAD (coronary artery disease): Plan: * s/p 3v CABG in 01/25 Admission and Anticipated Discharge Date Admission Date: July 14, 2024 Subjective Mr. Hartman was evaluated in his hospital room this morning. He informs me that he has been up ambulating the sanderson without difficulty. He is breathing comfortably on room air. He continues to diurese well in response to loop diuretic therapy. Review of Systems Constitutional: no fever Eyes: no problem reported Ear, Nose, Mouth, Throat: no problem reported Respiratory: no cough and no dyspnea Cardiovascular: no chest pain Gastrointestinal: + abdominal pain; no nausea, no vomiting and no diarrhea/loose stools Genitourinary: no dysuria, no hematuria or no flank pain Integumentary: no rash Physical Exam Constitutional: no acute distress Eyes: PERRL, conjunctivae normal, anicteric sclerae ENMT: external ear and nose normal, oropharynx normal Neck: trachea midline, no thyromegaly Respiratory: normal respiratory effort, lungs clear to auscultation Cardiovascular: Rate/Rhythm: regular rate and regular rhythm Extremities: + edema (1+ pretibial pitting edema) Gastrointestinal (Abdomen): normal bowel sounds, soft, nontender, no hepatosplenomegaly Skin: no rashes, warm and dry Neurologic: Speech / Cognition: normal speech and normal cognition Results & Data Vital Signs (Past 12 Hours) Vital Signs Temp Pulse Pulse Resp BP BP Pulse Ox 07/18/24 07:41 36.7 C 62 20 148/70 H 96 07/18/24 07:12 61 07/18/24 03:01 36.5 C 63 18 113/60 91 07/17/24 22:33 36.7 C 61 16 129/70 96 07/17/24 21:56 53 L O2 Del Method 07/18/24 07:41 Room Air 07/18/24 07:12 07/18/24 03:01 Room Air 07/17/24 22:33 Room Air 07/17/24 21:56 Laboratory Results Laboratory Results - last 24 hr 07/17/24 07/17/24 07/17/24 11:38 16:51 20:01 WBC RBC Hgb Hct MCV MCH MCHC RDW Std Deviation RDW Coeff of [place] Plt Count MPV PT INR Sodium Potassium Chloride Carbon Dioxide Anion Gap BUN Creatinine Est Cr Clr Drug Dosing Est GFR ( Amer) Est GFR (Non-Af Amer) BUN/Creatinine Ratio Glucose POC Glucose 150 H 127 H 187 H Calcium Phosphorus Magnesium Iron TIBC Unsaturated IBC Transferrin % Sat Ferritin Albumin Urine Color Urine Appearance Urine pH Ur Specific [place] Urine Protein Urine Glucose (UA) Urine Ketones Urine Blood Urine Nitrite Urine Bilirubin Urine Urobilinogen Ur Leukocyte Esterase Urine WBC (Auto) Urine RBC (Auto) U Hyaline Cast (Auto) U Epithel Cells (Auto) Urine Bacteria (Auto) 07/17/24 07/18/24 07/18/24 Unknown 07:40 08:12 WBC 4.28 L RBC 4.04 L Hgb 9.2 L Hct 30.9 L MCV 76.5 L MCH 22.8 L MCHC 29.8 L RDW Std Deviation 53.5 H RDW Coeff of [place] 19.9 H Plt Count 142 MPV 9.3 L PT 30.7 H INR 3.1 H Sodium 144 Potassium 3.6 Chloride 109 H Carbon Dioxide 29 Anion Gap 6 BUN 38 H Creatinine 2.80 H Est Cr Clr Drug Dosing 30.1 Est GFR ( Amer) 24.6 Est GFR (Non-Af Amer) 21.3 BUN/Creatinine Ratio 13.6 Glucose 121 H POC Glucose 122 H Calcium 9.1 Phosphorus 3.2 Magnesium 1.9 Iron 36 TIBC 308 Unsaturated IBC 272 Transferrin % Sat 12 L Ferritin 57.7 Albumin 3.9 Urine Color Yellow Urine Appearance Cloudy A Urine pH 5.0 Ur Specific [place] 1.011 Urine Protein Trace H Urine Glucose (UA) Negative Urine Ketones Negative Urine Blood Negative Urine Nitrite Negative Urine Bilirubin Negative Urine Urobilinogen Negative Ur Leukocyte Esterase 3+ H Urine WBC (Auto) >50 H Urine RBC (Auto) 0-2 U Hyaline Cast (Auto) 3-5 H U Epithel Cells (Auto) 0-2 Urine Bacteria (Auto) 4+ H PG Care Time/CCT Total # of Minutes Spent Total Time Spent with Patient: Total time spent is greater than 50% in coordination of care (as documented) at patient's floor/unit and/or counseling patient: Coding Level of Care Code 10763 SUB INP/OBS CARE 3/50MIN Diagnoses Acute kidney injury N17.9 Anemia due to stage 4 chronic kidney disease N18.4; D63.1 Chronic kidney disease stage: stage 4 (severe) CKD (chronic kidney disease) N18.9 Acute on chronic heart failure with preserved ejection fraction I50.33 Paroxysmal atrial fibrillation I48.0 Coronary artery disease involving [place] coronary artery of [place] heart without angina pectoris I25.10 Associated angina: without angina Coronary Disease-Associated Artery/Lesion type: [place] artery [place] vs. transplanted heart: [place] heart (2) Anemia due to chronic kidney disease Chronic kidney disease stage: stage 4 (severe) Qualified Code(s): N18.4 - Chronic kidney disease, stage 4 (severe); D63.1 - Anemia in chronic kidney disease (6) CAD (coronary artery disease) Associated angina: without angina Coronary Disease-Associated Artery/Lesion type: [place] artery [place] vs. transplanted heart: [place] heart Qualified Code(s): I25.10 - Atherosclerotic heart disease of [place] coronary artery without angina pectoris
[2024-07-18 11:44] VITALS: RESP 18
--- NOTE | 2024-07-18 14:55 | Hospitalist Progress Note ---
Date of Service July 18, 2024 Assessment & Plan (1) Acute on chronic heart failure with preserved ejection fraction: Plan: (1) Acute on chronic heart failure with preserved ejection fraction: Plan: Patient presented with 1 wk h/o worsening SOB and leg swelling, abdominal swelling, weight gain. - CXR here with small left pleural effusion, pulm edema. - With a h/o CKD stage 4. Renal US w/ ascites noted, otherwise fairly unremark able - With a h/o CABG in 01/2024, cardiac stents - TTE 04/2024 LVEF 55-60% and repeat limited ECHO here with LVEF 55-60%, severe LVH, mild RV dysfunction - Pt on torsemide 20mg daily at home, compliant with medications. Does admit to not closely following a low sodium diet and was drinking a lot of iced tea recently - BNP 640 on admission and Trop 173.5/190/190 likely demand ischemia. 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 Has a h/o cardioversion this year pt on anticoagulation with warfarin (5mg sat/sun and rest of the week 2.5mg, target 2-3INR)--> INR today mildly above goal at 3.1 -- trend EKG current in NSR with sinus arrhythmia here but was in Afib at Cardiology office prior to admission Had brief PAT run overnight 07/16 but otherwise 1st deg AVB, rates 50-60s c/w Amiodarone 200mg daily monitor on tele has a h/o profound bradycardia on metoprolol in the past-avoid beta-blockers (3) CAD (coronary artery disease): Plan: s/p CABG 01/25 no chest pain Continue Plavix and atorvastatin (4) Diabetes mellitus: Plan: known hx of DM2 on oral meds last A1c 05/27, 6.5% and repeat here same holding home glimepiride 1mg daily while in hospital Continue BSGs, Novolog SSI (5) CKD stage 4 due to type 2 diabetes mellitus: Plan: Known hx of CKD 4, 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 AOCD, Fe deficiency, no obvious bleeding, B12, folate, TSH all recently normal pt had iron transfusion x 2 recently prior to admission Given Epogen on 07/17/24 Hgb 8.4 and stable monitor CBC Nephrology ordered iron studies (7) Hyperlipidemia: Plan: c/w Atorvastatin 40mg (8) Abnormal urinalysis: Plan: UA somewhat abnormal, Ur cx with pinpoint growth -- no treatment Plan DVT proph-Coumadin Full Code Dispo-continued stay on med-tele, will likely need at least 1-2 more days of IV diuresis prior to discharge Admission and Anticipated Discharge Date Admission Date: July 14, 2024 Subjective Overall feeling better. Eating and drinking normally. Ambulating normally. Review of Systems Review of Systems: All systems reviewed & are unremarkable except as noted in HPI & below Physical Exam Constitutional: WD/WN, vitals as above Eyes: + anicteric sclerae ENMT: external ear and nose normal, oropharynx normal Neck: trachea midline, no thyromegaly Respiratory: normal respiratory effort, lungs clear to auscultation Auscultation: no crackles Cardiovascular: Rate/Rhythm: regular rate and regular rhythm Heart Sounds: normal S1 and normal S2; no murmur Extremities: + edema (+2 bilaterally ) Musculoskeletal: Head/Neck/Chest: normocephalic and head atraumatic Skin: no rashes, warm and dry Psychiatric: A+Ox3, euthymic affect Results & Data Results & Data Vital Signs (Past 12 Hours) Vital Signs Temp Pulse Pulse Resp BP BP Pulse Ox 07/18/24 07:41 36.7 C 62 20 148/70 H 96 07/18/24 07:12 61 07/18/24 03:01 36.5 C 63 18 113/60 91 07/17/24 22:33 36.7 C 61 16 129/70 96 07/17/24 21:56 53 L O2 Del Method 07/18/24 07:41 Room Air 07/18/24 07:12 07/18/24 03:01 Room Air 07/17/24 22:33 Room Air 07/17/24 21:56 PG Care Time/CCT Total # of Minutes Spent Total Time Spent with Patient: Total time spent is greater than 50% in coordination of care (as documented) at patient's floor/unit and/or counseling patient: C[place] [address] SUB INP/OBS CARE 2/35MIN Patient Type Established Diagnoses Acute on chronic heart failure with preserved ejection fraction I50.33
[2024-07-18] MEDS: WARFARIN SOD 5 MG TAB PO SCH (16:52)
[2024-07-19 03:24] VITALS: O2SAT 96
[2024-07-19 07:15] LABS: Hematocrit (blood only) 28.5 % (42.0-52.0); Hemoglobin 8.6 g/dl (14.0-18.0); Mean Corpuscular Hemoglobin 22.5 pg (25.0-34.0); Mean Corpuscular Hgb Conc 30.2 g/dL (32.0-36.0); Mean Corpuscular Volume 74.4 fL (80.0-100.0); Mean Platelet Volume 9.7 fL (9.4-12.4); Platelet Count 132 K/uL (130-400); RDW Coefficient of Variation 20.2 % (11.5-14.5); RDW Standard Deviation 52.8 fL (36.4-46.3); Red Blood Count 3.83 M/uL (4.70-6.10); White Blood Count 4.19 K/ul (4.8-10.8)
[2024-07-19 07:37] LABS: Calcium 8.9 mg/dl (8.6-10.3); Creatinine Clr Calc Pharmacy 31.6 ml/min; Est GFR (African American) 26.1 ml/min; Est GFR (Non-African American) 22.5 ml/min; Potassium 3.9 mmol/L (3.5-5.1)
[2024-07-19 07:59] LABS: INR 3.3 (0.9-1.1); Prothrombin Time 32.1 Seconds (9.0-12.0)
[2024-07-19 08:01] VITALS: PULSE 60; TEMP 98.1
[2024-07-19] MEDS: TORSEMIDE 20 MG TAB PO SCH (08:23)
--- NOTE | 2024-07-19 09:04 | Nephrology Progress Note ---
Date of Service July 19, 2024 Assessment & Plan (1) Acute kidney injury: Plan: * JAMAAL due to CRSresolved. Baseline creatinine has been 2.1-2.9 depending upon volume status * Creatinine improved to 2.6 today * Patient continues to respond well to IV diuretic therapy * Consider transitioning to torsemide 40 mg po daily * Reviewed 1500 mg NaCl restricted diet * Discussed weight based diuretic dosing * No obstruction appreciated on renal US. * Monitor daily BMP, UO * If discharge is anticipated, recommend torsemide 40 mg daily and schedule follow-up nephrology outpatient visit with Dr. Martínez within 7-10 days (2) Anemia due to chronic kidney disease: Plan: * LORNE. FOBT negative. No overt blood loss. * Ferrlecit 125 mg IV x 3 provided. * Epogen 10,000 units subcu administered 07/17/2024 * Hgb is trending upward. (3) CKD (chronic kidney disease): Plan: * CKD stage G4/A3. Baseline creatinine 2.1-2.9 mg/dL. Non-nephrotic. Albuminuria quantified at 500 mg/day. No monoclonal abnormality was detected in the urine. PLA2r testing previously negative. CKD attributed to DKD, arterionephrosclerosis. * RAASi stopped due to progressive JAMAAL in the past. * Has not been maintained on SGLT2i. * Consider RAASi and SGLT2i therapy as outpatient (4) Acute on chronic heart failure with preserved ejection fraction: Plan: * Cardiology is following. Patient is improving with IV diuretic therapy. (5) Paroxysmal atrial fibrillation: Plan: * History of MAZE procedure and DC cardioversion for recurrent atrial flutter. Remains on amiodarone. Anticoagulated with warfarin. (6) CAD (coronary artery disease): Plan: * s/p 3v CABG in 01/25 Admission and Anticipated Discharge Date Admission Date: July 14, 2024 Subjective Mr. Hartman was evaluated in his hospital room this morning. He was up ambulating the sanderson earlier without difficulty. He is breathing comfortably on room air. He continues to diurese well in response to loop diuretic therapy. Review of Systems Constitutional: no fever Eyes: no problem reported Ear, Nose, Mouth, Throat: no problem reported Respiratory: no cough and no dyspnea Cardiovascular: no chest pain Gastrointestinal: + abdominal pain; no nausea, no vomiting and no diarrhea/loose stools Genitourinary: no dysuria, no hematuria or no flank pain Integumentary: no rash Physical Exam Constitutional: no acute distress Eyes: PERRL, conjunctivae normal, anicteric sclerae ENMT: external ear and nose normal, oropharynx normal Neck: trachea midline, no thyromegaly Respiratory: normal respiratory effort, lungs clear to auscultation Cardiovascular: Rate/Rhythm: regular rate and regular rhythm Extremities: + edema (1+ pretibial pitting edema) Gastrointestinal (Abdomen): normal bowel sounds, soft, nontender, no hepatosplenomegaly Skin: no rashes, warm and dry Neurologic: Speech / Cognition: normal speech and normal cognition Results & Data Vital Signs (Past 12 Hours) Vital Signs Temp Pulse Pulse Resp BP BP Pulse Ox 07/19/24 08:00 36.7 C 60 18 131/72 96 07/19/24 06:56 56 L 07/19/24 03:04 36.8 C 57 L 18 133/67 96 07/18/24 22:27 36.6 C 59 L 18 152/74 H 94 07/18/24 22:24 55 L O2 Del Method 07/19/24 08:00 Room Air 07/19/24 06:56 07/19/24 03:04 Room Air 07/18/24 22:27 Room Air 07/18/24 22:24 Laboratory Results Laboratory Results - last 24 hr 07/18/24 07/18/24 07/18/24 12:22 17:01 20:12 WBC RBC Hgb Hct MCV MCH MCHC RDW Std Deviation RDW Coeff of [place] Plt Count MPV PT INR Sodium Potassium Chloride Carbon Dioxide Anion Gap BUN Creatinine Est Cr Clr Drug Dosing Est GFR ( Amer) Est GFR (Non-Af Amer) BUN/Creatinine Ratio Glucose POC Glucose 131 H 167 H 168 H Calcium 07/19/24 07/19/24 07/19/24 06:51 06:54 08:24 WBC 4.19 L RBC 3.83 L Hgb 8.6 L Hct 28.5 L MCV 74.4 L MCH 22.5 L MCHC 30.2 L RDW Std Deviation 52.8 H RDW Coeff of [place] 20.2 H Plt Count 132 MPV 9.7 PT 32.1 H INR 3.3 H Sodium 145 Potassium 3.9 Chloride 110 H Carbon Dioxide 28 Anion Gap 7 BUN 40 H Creatinine 2.67 H Est Cr Clr Drug Dosing 31.6 Est GFR ( Amer) 26.1 Est GFR (Non-Af Amer) 22.5 BUN/Creatinine Ratio 15.0 Glucose 105 H POC Glucose 116 H Calcium 8.9 PG Care Time/CCT Total # of Minutes Spent Total Time Spent with Patient: Total time spent is greater than 50% in coordination of care (as documented) at patient's floor/unit and/or counseling patient: Coding Level of Care Code 01264 SUB INP/OBS CARE 3/50MIN Diagnoses Acute kidney injury N17.9 Anemia due to stage 4 chronic kidney disease N18.4; D63.1 Chronic kidney disease stage: stage 4 (severe) CKD (chronic kidney disease) N18.9 Acute on chronic heart failure with preserved ejection fraction I50.33 Paroxysmal atrial fibrillation I48.0 Coronary artery disease involving [place] coronary artery of [place] heart without angina pectoris I25.10 Associated angina: without angina Coronary Disease-Associated Artery/Lesion type: [place] artery [place] vs. transplanted heart: [place] heart (2) Anemia due to chronic kidney disease Chronic kidney disease stage: stage 4 (severe) Qualified Code(s): N18.4 - Chr onic kidney disease, stage 4 (severe); D63.1 - Anemia in chronic kidney disease (6) CAD (coronary artery disease) Associated angina: without angina Coronary Disease-Associated Artery/Lesion type: [place] artery [place] vs. transplanted heart: [place] heart Qualified Code(s): I25.10 - Atherosclerotic heart disease of [place] coronary artery without angina pectoris
--- NOTE | 2024-07-19 10:45 | Discharge Summary ---
Date of Service July 19, 2024 Admission HPI Per Admitting Provider This is a 73-year-old Male with b/g hx of HFpEF, CABG (01/25), CKD 3a, HTN, DM2, AFib permanent (on warfarin), CAD who presents to the ED for evaluation retaining fluid in legs up to groin and SOB with exertion that is worsened over the weekend. Pt was seen by cardiology today as a routine visit, and sent for admission for diuresis. Pt denies any chest pain or palpitations or syncope. No recent cough, diarrhea, dysuria or any acute illnesses. Pt says that he is compliant with his medications. He still uses 2 pillows to sleep, no change. Admission Exam Per Admitting Provider General: Alert and oriented, no acute distress, on room air. HEENT: Normocephalic, moist oral mucosa, Cardio: irregular rate and rhythm, no murmur, JVD mild elevation, HJR +, B/L pedal edema 2+. Resp: Lungs crepts++ to auscultation b/l, reduced br sounds at Lt LL, no wheezes. GI: Soft and nontender, nondistended, bowel sounds active Skin: Warm, pink, dry, Psych: Mood-affect congruence. Extremities: Normal range of motion, 5/5 strength, normal sensory b/l. Neuro: CN II-XII grossly intact, no focal deficits Principal Diagnosis acute exacerabation of CHF Discharge Exam Constitutional WD/WN, vitals as above Eyes + anicteric sclerae ENMT external ear and nose normal, oropharynx normal Neck trachea midline, no thyromegaly Respiratory normal respiratory effort, lungs clear to auscultation Auscultation: no crackles Cardiovascular RRR, no murmur, no edema Musculoskeletal Head/Neck/Chest: normocephalic and head atraumatic Skin no rashes, warm and dry Psychiatric A+Ox3, euthymic affect Discharge Data Allergies Allergy/AdvReac Type Severity Reaction Status Date / Time No Known Drug Allergies Allergy Unknown Verified 07/14/24 17:42 Consultations 07/14/24 17:33 ED Decision to Admit Stat 07/14/24 23:11 Consult MNPG powder carrier Routine 07/15/24 08:25 Consult Cardiology Routine 07/17/24 09:53 Consult Nephrology Routine Ordered Studies 07/15/24 23:25 US renal/blad retro comp Routine Hospital Course (1) Acute on chronic heart failure with preserved ejection fraction: (1) Acute on chronic heart failure with preserved ejection fraction: Plan: Patient presented with 1 wk h/o worsening SOB and leg swelling, abdominal swelling, weight gain --> consistent with acute exacerbation of CHF - CXR here with small left pleural effusion, pulm edema. - BNP 640 on admission - TTE 04/2024 LVEF 55-60% and repeat limited ECHO here with LVEF 55-60%, severe LVH, mild RV dysfunction - Pt on torsemide 20mg daily at home, compliant with medications. Does admit to not closely following a low sodium diet and was drinking a lot of iced tea recently - Patient was diuresed with IV lasix 40mg daily with success. - home dose of torsemide increased to 40mg daily on discharge. He is aware he will need a BMP in 5 days. (2) Paroxysmal atrial fibrillation: Plan: known hx of AFib, s/p MAZE procedure developed a-flutter. Has a h/o cardioversion this year pt on anticoagulation with warfarin (5mg sat/sun and rest of the week 2.5mg, target 2-3INR)--> INR ran above goal in hospital --> coumadin dose lowered by 20% --> 2.5mg all 7 days per week moving forward. Repeat INR in 5 days. EKG current in NSR with sinus arrhythmia here but was in Afib at Cardiology office prior to admission Had brief PAT run overnight 07/16 but otherwise 1st deg AVB, rates 50-60s c/w Amiodarone 200mg daily has a h/o profound bradycardia on metoprolol in the past-avoid beta-blockers (3) CAD (coronary artery disease): Plan: s/p CABG 01/25 no chest pain Continue Plavix and atorvastatin (4) Diabetes mellitus: Plan: known hx of DM2 on oral meds last A1c 05/27, 6.5% and repeat here same holding home glimepiride 1mg daily while in hospital Continue BSGs, Novolog SSI (5) CKD stage 4 due to type 2 diabetes mellitus: Plan: Known hx of CKD stage 4, baseline bilingual patient support caseworker around 2.9 - With a h/o CKD stage 4. Renal US w/ ascites noted, otherwise fairly unremarka ble --> recommend he follow up with Dr. Martínez in 7-10 days. Sequins Winder reduced to 2.67 by day of discharge (6) Anemia due to chronic kidney disease: Plan: known CKD. AOCD, Fe deficiency, no obvious bleeding, B12, folate, TSH all recently normal pt had iron transfusion x 2 recently prior to admission Given Epogen on 07/17/24 Hgb 8.4 and stable monitor CBC Nephrology ordered iron studies (7) Hyperlipidemia: Plan: c/w Atorvastatin 40mg (8) Abnormal urinalysis: Plan: UA somewhat abnormal, Ur cx with pinpoint growth -- no treatment Total Time Total Time Spent Total Time Spent (In Minutes): 30 min Total Time Includes: Examination of the Patient, Discharge Planning and Medication Reconciliation Discharge Plan Discharge Items Patient Disposition: Home - Self-Care Reason For Visit: ACUTE CHF Discharge Diagnosis: Acute Exacerbation of Congestive Heart Failure Activity: Resume your previous activity Non-emergency contact: Primary Care Provider and Geodetic Technician Call non-emergency contact if: your symptoms worsen Follow-up/Referrals: Radha Bhatt CRNP [Primary Care Provider] - Diet: Low Sodium (2gm) Ambulatory Orders: Prothrombin Time INR (Routine) Timeframe: 1 Week Location: Determined by Patient Ordered By: Aneta Garrett Attending Provider Instructions: You were hospitalized at [facility] due to swelling of your legs. The cause of the swelling was excess fluid in your vasculature. When we consume sodium (ie salt), water follows it into the blood stream. In your case, too much salt, and thus, too much water in the blood stream, overwhelms your heart and causes a backflow into the lungs and other tissues (ie legs and scrotal area). The torsemide medication you take works to try to rid the body of the excess fluid. The best way to make sure this scenario does not occur again is as follows: 1. Take your torsemide dose daily -- no skipped doses. Additionally, we recommend you INCREASE your daily dose from 20 to 40mg at this time. 2. Limit you salt intake --we discussed how you do not add salt to food- however the [place] diet is loaded with sodium as it is. Additionally, while you were in the hospital, you INR was above goal (ie too high). For this reason, we skipped your dose of coumadin on 07/19/24 and also want you to reduce your overall dose from 2.5mg M-F and 5.0mg Sat and Sun to 2.5mg all 7 days per week moving forward. You will need to get an INR check in about 1 week. Pending Studies at Discharge: No Stand-Alone Forms: My [facility], Smoking Cessation Medications and DC Order Prescriptions: New torsemide 20 mg Tablet 40 mg PO QAM 30 Days Qty: 60 0RF warfarin [Jantoven] 2.5 mg Tablet 2.5 mg PO DAILY@1600 30 Days Qty: 30 0RF Continued (DME) lancets [OneTouch UltraSoft 2 Lancet] 30 gauge misc See Rx Instructions .ROUTE .MEDSUPPLY Qty: 100 1RF Rx Instructions: As directed once daily dx:e11.9 (DME) blood-glucose meter [OneTouch Ultra2 Meter] Misc See Rx Instructions .Route Qty: 1 0RF Rx Instructions: As directed. Check glucose once daily. DX E11.9 atorvastatin 40 mg tablet 40 mg PO QAM Qty: 90 3RF (DME) OneTouch Ultra Test Strip See Rx Instructions .ROUTE .MEDSUPPLY Qty: 100 0RF Rx Instructions: Check sugar once daily as directed DX:E11.9 folic acid 1 mg tablet 1 mg PO HS Qty: 90 3RF amiodarone 200 mg tablet 200 mg PO DAILY Qty: 30 2RF clopidogrel 75 mg tablet 75 mg PO QAM tamsulosin 0.4 mg capsule 0.4 mg PO PM cyanocobalamin (vitamin B-12) 1,000 mcg Tablet, Sublingual 1,000 mcg SUBLINGUAL DAILY glimepiride 1 mg tablet 1 mg PO QPM No Action warfarin 5 mg tablet 5 mg PO DAILY Qty: 90 3RF Protocol: Dose Management Condition: Saturday Dose/Route: 5 mg Instruction: 1 x 5 mg tablet Condition: Saturday Dose/Route: 2.5 mg Instruction: 1 x 2.5 mg tablet Condition: Saturday Dose/Route: 2.5 mg Instruction: 1 x 2.5 mg tablet Condition: Saturday Dose/Route: 2.5 mg Instruction: 1 x 2.5 mg tablet Condition: Dose/Route: 2.5 mg Instruction: 1 x 2.5 mg tablet Condition: Saturday Dose/Route: 2.5 mg Instruction: 1 x 2.5 mg tablet Condition: Saturday Dose/Route: 5 mg Instruction: 1 x 5 mg tablet Protocol Text: Adjustment Start Date: Saturday06/30/24 INR Value: 2.5 INR Date: 06/30/24 Recheck Date: 07/14/24 Rx Instructions: Take 5mg by mouth on Sat/Sun. Take 2.5mg all other days. torsemide 20 mg tablet 20 mg PO DAILY Qty: 60 11RF Discharge Orders: Discharge Order (Routine); Ordered 07/19/24 Ordered By: Aneta Lewis/Other Patient Handouts: Low-Salt Choices, Managing Type 2 Diabetes, Heart Failure: Know Your Baselines Admission Data Admit Date/Time: 07/14/24 19:34 Attending Provider: Aneta Duke Admit Provider: Franky Medeiros Primary Care Provider: Radha Bhatt Other Providers: Terell Ramon; Richard Vasquez; Freddie Ramon Other Interventions: Discharge Summary Assessment (RN) Last Done: 07/19/24 10:56
[2024-07-19 10:57] VITALS: BP 133/67
[2024-07-20] MEDS ORDERED: WARFARIN SOD 2.5 MG TAB PO SCH (16:00)
== END 2024-07-19 12:00 | disposition home or self-care (01) | DRG 291 ==
LOC: ED 16:21 → 2N 19:34 → SUATTDRO 19:34 → 2N 21:29